=== PATIENT | female | born 1960 | race Caucasian/White ===

== ENCOUNTER → 2016-10-04 | Outpatient (CLI) | payer MEDICAID ==
[2016-10-04 09:33] LABS: Basophils % (A) 0 %; CH 28.4; Eosinophils # (A) 0.2 k/uL (0-0.7); Eosinophils % (A) 3 %; HCT 44.2 % (34.0-46.0); HDW 2.79; HGB 14.3 gm/dL (11.4-16.0); Luc # (Auto) 0.17; Luc % (Auto) 3; Lymphocytes # (A) 2.1 k/uL (1.0-4.8); Lymphocytes % (A) 30 %; MCH 27.9 pg (25.0-35.0); MCHC 32.3 g/dL (31.0-37.0); MCV 86.4 fL (80.0-100.0); Mean Platelet Volume 7.3; Monocytes # (A) 0.5 k/uL (0-1.0); Monocytes % (A) 7 %; Neutrophils % (A) 58 %; RBC 5.12 m/uL (3.80-5.40); WBC (Perox) 7.07
== END | disposition home or self-care (01) ==
LOC: LABPAT 08:31
PROVIDERS: ATTEND Obstetrics & Gynecology
DX: Z01.810 Encounter for preprocedural cardiovascular examination (principal); Z01.812 Encounter for preprocedural laboratory examination
CPT/HCPCS: 85025; 93005

== ENCOUNTER 2016-10-10 06:47 | Day surgery (SDC) | payer MEDICAID ==
[2016-10-04 11:02] VITALS: BMI 32.9
--- NOTE | 2016-10-09 20:33 | P.HPOB ---
History of Present Illness H&P Date: 10/09/16 Chief Complaint: Postmenopausal bleeding This is a 55-year-old female 6 para 3 who presents for dilation and curettage with hysteroscopy secondary to postmenopausal bleeding. She started having some brown and bright red spotting in early August. She has been continuing to have this intermittently. Her last menstrual period was previously at age 49. Pelvic ultrasound showed uterus measuring 7.7 x 4.0 x 5.7 cm and endometrial stripe measured 0.7 cm. Both ovaries appeared normal. Obstetrical history: . History of 1 vaginal delivery and 2 sections. She also has a history of 3 miscarriages. Gynecologic history: She does have a history of herpes virus but no recent outbreaks. Social history: She is . 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 Review of Systems Constitutional: Reports fatigue Gastrointestinal: Reports abdominal pain (Cramping) Genitourinary: Reports abnormal vaginal bleeding, Reports pelvic pain Musculoskeletal: Reports low back pain Musculoskeletal: bilateral: ankle swelling Neurological: Reports numbness (Hands, arms, both legs, more so on the right side.) Psychiatric: Reports anxiety, Reports difficulty concentrating, Reports insomnia Past Medical History Past Medical History: Asthma, Cancer, Diabetes Mellitus (Borderline), GERD/ Reflux, Osteoarthritis (OA) Additional Past Medical History / Comment(s): CANCER BEHIND RT KNEE; history of simple endometrial hyperplasia diagnosed in 2010. History of Any Multi-Drug Resistant Organisms: None Reported Past Surgical History: Breast Surgery, Section, Joint Replacement, Orthopedic Surgery Additional Past Surgical History / Comment(s): RIGHT KNEE REPLACED. BILATERAL KNEE ARTHO. BREAST BX-NEG. OVARIAN CYST REMOVED-exploratory laparotomy, TUMOR RIGHT KNEE- CANCEROUS. Dilation and curettage with hysteroscopy-2010. COLONOSCOPY Past Anesthesia/Blood Transfusion Reactions: No Reported Reaction Past Psychological History: ADD/ADHD, Depression Smoking Status: Former smoker Past Alcohol Use History: Rare Additional Past Alcohol Use History / Comment(s): SMOKED: QUIT @ 25 YR. SMOKED FOR 3 YRS. PPD: 1.5. Past Drug Use History: None Reported - Past Family History Mother Family Medical History: AFIB Father Family Medical History: Cancer Medications and Allergies Home Medications Medication Instructions Recorded Confirmed Type Citalopram Hydrobromide [CeleXA] 20 mg PO HS 12/07/14 10/04/16 History Dextroamphetamine/Amphetamine 30 mg PO Q72H 12/07/14 10/04/16 History [Adderall] Montelukast [Singulair] 10 mg PO DAILY PRN 12/07/14 10/04/16 History Zolpidem [Ambien] 5 mg PO HS PRN 12/07/14 10/04/16 History Albuterol Sulfate [Ventolin HFA] 2 puff INHALATION RT-Q6H PRN 12/09/14 10/04/16 History Cholecalciferol [Vitamin D3] 1,000 unit PO MOFR 12/09/14 10/04/16 History Multivitamins, Thera [Multivitamin] 1 tab PO DAILY 12/09/14 10/04/16 History [place]-3 Fatty Acids/Fish Oil [Fish 1 cap PO DAILY 12/09/14 10/04/16 History Oil 1,000 mg Softgel] Omeprazole [PriLOSEC] 20 mg PO DAILY 03/28/16 10/04/16 History HYDROcodone/APAP 7.5-325MG [[place] 1 tab PO Q6HR PRN 10/04/16 10/04/16 History 7.5-325] Ibuprofen [Motrin] 600 mg PO DAILY PRN 10/04/16 10/04/16 History Allergies Allergy/AdvReac Type Severity Reaction Status Date / Time scopolamine Allergy tachycardia Verified 10/04/16 10:45 Exam Osteopathic Statement: *. No significant issues noted on an osteopathic structural exam other than those noted in the History and Physical/Consult. HEENT: Within normal limits Heart: Regular rate and rhythm Lungs: Clear to auscultation bilaterally Abdomen: Soft, nontender Pelvic exam: Cervix-Multiparous os with bloody discharge noted. Uterus is mid position and slightly enlarged, with no adnexal masses palpated. Extremities: Negative Homans Assessment and Plan (1) Post-menopausal bleeding Status: Acute Plan: Proceed with dilation and curettage with hysteroscopy. I have discussed the risks, benefits, and alternative therapies for the above- mentioned procedure and for both sedation/anesthesia as well as necessary blood products administration, if indicated, as they pertain to this patient. The patient has indicated her understanding and acceptance of the risks and procedures discussed.
[~2016-10-10 06:47] MED LIST: DEXAMETHASONE SOD PHOSPHATE 10 MG/ML 1 ML VIAL IV ONE; LACTATED RINGERS 1,000 ML IV SCH; MIDAZOLAM 2 MG/2 ML VIAL IV PRN; ONDANSETRON 4 MG/2 ML VIAL IVP ONE; Pre Op ABX Message 1 EACH MISC MISCELLANE ONE
[2016-10-10] MEDS ORDERED: LACTATED RINGERS 1,000 ML IV ONE (07:24)
[2016-10-10] MEDS ORDERED: LIDOCAINE 1% 20 ML VIAL (10MG/ML) FOR IV START INTRADERMA ONE (07:25)
[2016-10-10] MEDS ORDERED: MIDAZOLAM 2 MG/2 ML VIAL ONE (07:30)
[2016-10-10] MEDS ORDERED: SUCCINYLCHOLINE CHLORIDE VIAL 200 MG/10 ML VIAL IV ONE (07:30)
[2016-10-10] MEDS ORDERED: LIDOCAINE 1% INJ 10MG/ML (20 ML MDV) ONE (07:30)
[2016-10-10] MEDS ORDERED: fentaNYL (PF) 50 MCG/ML 2 ML AMP ONE (07:30)
[2016-10-10] MEDS ORDERED: PROPOFOL 10 MG/ML 20 ML VIAL IV ONE (07:30)
--- NOTE | 2016-10-10 08:00 | P.OP ---
Date of Procedure: 10/10/16 Preoperative Diagnosis: Postmenopausal bleeding, endometrial thickening Postoperative Diagnosis: Same Procedure(s) Performed: Hysteroscopy with dilation and curettage Anesthesia: CHARLES Surgeon: Fidelia Briceno Estimated Blood Loss (ml): 5 Pathology: other (Endometrial curettings) Condition: stable Disposition: same day Indications for Procedure: This is a 55-year-old female 6 para 3 who presents for dilation and curettage with hysteroscopy secondary to postmenopausal bleeding. She started having some brown and bright red spotting in early August. She has been continuing to have this intermittently. Her last menstrual period was previously at age 49. Pelvic ultrasound showed uterus measuring 7.7 x 4.0 x 5.7 cm and endometrial stripe measured 0.7 cm. Both ovaries appeared normal. Operative Findings: Uterus is anteverted, sounded to 7 cm. No adnexal masses are palpated. Upon hysteroscopy a slightly thicker posterior lining was noted. No specific polyps or fibroids were visualized. Both tubal ostia were visualized. Description of Procedure: The patient was taken to the operating room where she is placed in the dorsal lithotomy position. She is prepped and draped in the normal sterile fashion. Bladder is drained with a catheter. Examination is performed under anesthesia. Uterus is found to be mid to anteverted position. No adnexal masses are palpated. Next a weighted speculum was placed in the patient's vagina and a right angle retractor was used to visualize the cervix. The anterior lip of the cervix is grasped with a single-tooth tenaculum. The cervix is noted to be stenotic. It is open slightly with a small Mckeon dilator. Next the uterus is sounded to 7 cm. Cervix is gently dilated further with Mckeon dilators until a hysteroscope passed. Hysteroscopy was performed using normal saline. The above noted findings are made and pictures are taken. Next the hysteroscope was withdrawn and the cervix is gently dilated further. A polyp forcep was introduced with minimal tissue obtained. Next a medium-size sharp curet was introduced with minimal to moderate amount of tissue obtained. Next the single- tooth tenaculum was removed no bleeding was noted. The specimen was removed from the field. All sponge and needle counts are correct. All instruments are correct and the patient is taken to recovery room in stable condition.
[2016-10-10 08:14] VITALS: TEMP 97.2
[2016-10-10] MEDS ORDERED: KETOROLAC 30 MG/ML 1 ML VIAL IVP ONE (08:23)
[2016-10-10] MEDS: HYDROmorphone 1 MG/ML 1 ML SYRINGE IVP PRN ×2 (08:36→08:41)
[2016-10-10 09:58] VITALS: RESP 18
[2016-10-10 11:06] VITALS: BP 126/78; PULSE 73
== END 2016-10-10 11:07 | disposition home or self-care (01) ==
LOC: OR 06:47
PROVIDERS: ATTEND Obstetrics & Gynecology
DX: N85.01 Benign endometrial hyperplasia (principal); N95.0 Postmenopausal bleeding; J45.909 Unspecified asthma, uncomplicated; K21.9 Gastro-esophageal reflux disease without esophagitis; F32.9 Major depressive disorder, single episode, unspecified; F90.9 Attention-deficit hyperactivity disorder, unspecified type; M19.90 Unspecified osteoarthritis, unspecified site; Z88.8 Allergy status to other drugs, medicaments and biological substances; Z79.1 Long term (current) use of non-steroidal anti-inflammatories (NSAID); Z79.899 Other long term (current) drug therapy; Z87.891 Personal history of nicotine dependence; Z85.9 Personal history of malignant neoplasm, unspecified
CPT/HCPCS: 58558; 88305; J2250; J0330; J1100; J2405; J2001; J3010; J1885; J1170; J2704

== ENCOUNTER → 2017-01-26 | Outpatient (CLI) | payer MEDICAID ==
[2017-01-26 18:54] LABS: Basophils % (A) 1 %; CHCM 32.1; Eosinophils # (A) 0.2 k/uL (0-0.7); Eosinophils % (A) 2 %; HCT 41.3 % (34.0-46.0); HDW 2.83; HGB 13.4 gm/dL (11.4-16.0); Luc # (Auto) 0.09; Luc % (Auto) 1; Lymphocytes # (A) 1.8 k/uL (1.0-4.8); Lymphocytes % (A) 23 %; MCH 28.5 pg (25.0-35.0); MCHC 32.5 g/dL (31.0-37.0); MCV 87.7 fL (80.0-100.0); Mean Platelet Volume 8.4; Monocytes # (A) 0.5 k/uL (0-1.0); Monocytes % (A) 7 %; Neutrophils # (A) 5.3 k/uL (1.3-7.7); Neutrophils % (A) 67 %; RBC 4.71 m/uL (3.80-5.40); RDW 13.4 % (11.5-15.5); WBC 7.9 k/uL (3.8-10.6); WBC (Perox) 7.97
[2017-01-26 19:07] LABS: ALT 27 U/L (9-52); AST 23 U/L (14-36); Alkaline Phosphatase 52 U/L (38-126); Anion Gap 7 mmol/L; Blood Urea Nitrogen 18 mg/dL (7-17); Calcium 9.4 mg/dL (8.4-10.2); Carbon Dioxide 30 mmol/L (22-30); Chloride 105 mmol/L (98-107); Glucose 87 mg/dL (74-99); Non-African American GFR(MDRD) >60 (>60 ml/min/1.73 sqM); Potassium 4.9 mmol/L (3.5-5.1); Sodium 142 mmol/L (137-145); Total Bilirubin 0.6 mg/dL (0.2-1.3)
[2017-01-26 19:50] LABS: Vitamin B12 582 pg/mL (239-931)
== END ==
LOC: MMGSC 13:36
PROVIDERS: ATTEND Family Medicine
DX: R53.83 Other fatigue (principal); R20.2 Paresthesia of skin
CPT/HCPCS: 36415; 80053; 82306; 82607; 84439; 84443; 85025

== ENCOUNTER → 2017-04-11 | Outpatient (CLI) | payer MEDICAID ==
--- NOTE | 2017-04-13 07:33 | MM ---
Reason for exam: screening (asymptomatic). Last mammogram was performed 1 year and 7 months ago. History: Patient is postmenopausal and has history of other cancer at age 23. Family history of breast cancer in grandmother at age 90. Excisional biopsy of the left breast, 1979. Took estrogen for 1 month. Physical Findings: A clinical breast exam by your physician is recommended on an annual basis and results should be correlated with mammographic findings. MG 3D Screening Mammo W/Cad Bilateral CC and MLO view(s) were taken. Prior study comparison: September 04, 2015, bilateral MG 3d screening mammo w/cad. January 22, 2014, bilateral digital screening mammo w/CAD. February 27, 2012, bilateral digital screening mammo w/CAD. The breast tissue is heterogeneously dense. This may lower the sensitivity of mammography. No significant changes when compared with prior studies. ASSESSMENT: Negative, BI-RAD 1 RECOMMENDATION: Routine screening mammogram of both breasts in 1 year.
== END | disposition home or self-care (01) ==
LOC: RADMAMWWP 07:47
PROVIDERS: ATTEND Obstetrics & Gynecology
DX: Z12.31 Encounter for screening mammogram for malignant neoplasm of breast (principal)
CPT/HCPCS: 77063; G0202

== ENCOUNTER → 2017-07-18 | Outpatient (CLI) | payer MEDICAID ==
--- NOTE | 2017-07-18 15:19 | US ---
EXAMINATION TYPE: US pelvic complete DATE OF EXAM: 07/18/2017 COMPARISON: US CLINICAL HISTORY: Pelvic pain R10.2 Post menopausal bleeding N95.0. TECHNIQUE: Transabdominal (TA) Date of LMP: Patient had instance of spotting, 4 years post menopausal. EXAM MEASUREMENTS: Uterus: 8.7 x 3.5 x 5.2 cm Endometrial Stripe: 0.9 cm Right Ovary: 2.0 x 1.2 x 1.2 cm Left Ovary: 1.9 x 1.1 x 1.0 cm 1. Uterus: Anteverted wnl 2. Endometrium: Thickened 3. Right Ovary: wnl 4. Left Ovary: wnl 5. Bilateral Adnexa: wnl 6. Posterior cul-de-sac: wnl IMPRESSION: Thickened endometrium. In a postmenopausal patient this may represent endometrial carcino ma and direct visualization with sampling is recommended.
== END ==
LOC: RADUSWWP 13:55
PROVIDERS: ATTEND Obstetrics & Gynecology
DX: R93.8 Abnormal findings on diagnostic imaging of other specified body structures (principal)
CPT/HCPCS: 76856

== ENCOUNTER → 2017-09-14 | Outpatient (CLI) | payer MEDICAID ==
[2017-09-14 11:42] LABS: CH 28.5; CHCM 33.8; HCT 43.5 % (34.0-46.0); HDW 2.95; HGB 14.5 gm/dL (11.4-16.0); MCH 28.2 pg (25.0-35.0); MCHC 33.4 g/dL (31.0-37.0); MCV 84.5 fL (80.0-100.0); Mean Platelet Volume 7.2; RBC 5.15 m/uL (3.80-5.40); RDW 13.1 % (11.5-15.5); WBC 7.4 k/uL (3.8-10.6)
== END | disposition home or self-care (01) ==
LOC: LABPAT 11:09
PROVIDERS: ATTEND Obstetrics & Gynecology
DX: Z01.818 Encounter for other preprocedural examination (principal); Z01.812 Encounter for preprocedural laboratory examination
CPT/HCPCS: 36415; 85027; 93005

== ENCOUNTER 2017-09-25 09:49 | Day surgery (SDC) | payer MEDICAID ==
[2017-09-20 12:11] VITALS: BMI 34.6
--- NOTE | 2017-09-24 14:58 | P.HPOB ---
History of Present Illness H&P Date: 09/24/17 Chief Complaint: Endometrial thickening, history of endometrial hyperplasia This is a 56-year-old female 6 para 3, who presents for dilation and curettage with hysteroscopy secondary to an Vicente thickening and history of endometrial hyperplasia without atypia. Endometrial thickness was 9 mm. She was placed on Prometrium for 3 months after her last dilation and curettage. She did have a repeat endometrial biopsy in January 2017 that showed fragments of inactive/weakly proliferative type endometrium but limited sample was noted. Her last pelvic ultrasound showed uterus measuring 8.7 x 3.5 x 5.2 cm. Endometrial stripe thickness was 9 mm. Both ovaries appeared normal. Her last menstrual period was at age 49. Obstetrical history: . History of 1 vaginal delivery and 2 deliveries. History of 3 miscarriages. Gynecologic history: She has a history of herpes. Social history: She is and has a current partner. 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 Review of Systems Constitutional: Reports fatigue, Denies chills, Denies fever Ears, nose, mouth and throat: Denies headache, Denies sore throat Cardiovascular: Denies chest pain, Denies shortness of breath Respiratory: Denies cough Gastrointestinal: Reports abdominal pain Genitourinary: Reports pelvic pain, Denies abnormal vaginal bleeding Menstruation: Reports postmenopausal Musculoskeletal: Reports low back pain, Reports myalgias Integumentary: Denies pruritus, Denies rash Neurological: Reports numbness Psychiatric: Reports anxiety, Reports difficulty concentrating, Reports insomnia Hematologic/Lymphatic: Reports easy bruising Past Medical History Past Medical History: Asthma, Cancer, GERD/Reflux, Osteoarthritis (OA) Additional Past Medical History / Comment(s): Postmenopausal bleeding,bordrline htn,varicose veins,hypoglycemia,Cancerous tumor BEHIND RT KNEE-no chemo/ radiation; history of simple endometrial hyperplasia diagnosed in 2010. History of Any Multi-Drug Resistant Organisms: None Reported Past Surgical History: Breast Surgery, Section, Joint Replacement, Orthopedic Surgery Additional Past Surgical History / Comment(s): RIGHT KNEE REPLACED. BILATERAL KNEE ARTHO. BREAST BX-NEG. OVARIAN CYST REMOVED NOT LAPAROSCOPIC. TUMOR RIGHT KNEE- CANCEROUS,tumor removed left breast; dilation and curettage-multiple Past Anesthesia/Blood Transfusion Reactions: No Reported Reaction Additional Past Anesthesia/Blood Transfusion Reaction / Comment(s): no hx blood transfusion Past Psychological History: Anxiety Smoking Status: Former smoker Past Alcohol Use History: Occasional Past Drug Use History: None Reported - Past Family History Mother Family Medical History: AFIB Father Family Medical History: Cancer Medications and Allergies Home Medications Medication Instructions Recorded Confirmed Type Citalopram Hydrobromide [CeleXA] 20 mg PO HS 12/07/14 09/20/17 History Dextroamphetamine/Amphetamine 30 mg PO Q72H 12/07/14 09/20/17 History [Adderall] Montelukast [Singulair] 10 mg PO DAILY PRN 12/07/14 09/20/17 History Zolpidem [Ambien] 5 mg PO HS PRN 12/07/14 09/20/17 History Albuterol Sulfate [Ventolin HFA] 2 puff INHALATION RT-Q6H PRN 12/09/14 09/20/17 History Cholecalciferol [Vitamin D3] 1,000 unit PO DAILY 12/09/14 09/20/17 History Multivitamins, Thera [Multivitamin 1 tab PO Q7D 12/09/14 09/20/17 History (formulary)] [place]-3 Fatty Acids/Fish Oil [Fish 1 cap PO DAILY 12/09/14 09/20/17 History Oil 1,000 mg Softgel] Omeprazole [PriLOSEC] 20 mg PO DAILY PRN 03/28/16 09/20/17 History HYDROcodone/APAP 7.5-325MG [[place] 1 tab PO Q6HR PRN 10/04/16 09/20/17 History 7.5-325] Ibuprofen [Motrin] 600 mg PO DAILY PRN 10/04/16 09/20/17 History Aspirin 81 mg PO DAILY 09/20/17 09/20/17 History Gabapentin [Neurontin] 300 mg PO DAILY 09/20/17 09/20/17 History Allergies Allergy/AdvReac Type Severity Reaction Status Date / Time scopolamine Allergy tachycardia Verified 09/20/17 12:01 Exam Osteopathic Statement: *. No significant issues noted on an osteopathic structural exam other than those noted in the History and Physical/Consult. HEENT: Within normal limits Heart: Regular rate and rhythm Lungs: Clear to auscultation bilaterally Abdomen: Soft, nontender Pelvic exam: Uterus is slightly enlarged, mildly tender, with no adnexal masses palpated but tenderness noted bilaterally. Extremities: Negative Homans Assessment and Plan (1) Endometrial thickening on ultra sound Status: Acute Code(s): R93.8 - ABNORMAL FINDINGS ON DIAGNOSTIC IMAGING OF BODY STRUCTURES SNOMED Code(s): 785145132 (2) Endometrial hyperplasia without atypia, simple Status: Acute Code(s): N85.01 - BENIGN ENDOMETRIAL HYPERPLASIA SNOMED Code(s ): 417318428 Plan: Proceed with dilation and curettage with hysteroscopy. I have discussed the risks, benefits, and alternative therapies for the above- mentioned procedure and for both sedation/anesthesia as well as necessary blood products administration, if indicated, as they pertain to this patient. The patient has indicated her understanding and acceptance of the risks and procedures discussed.
[2017-09-25] MEDS ORDERED: LIDOCAINE 1% 20 ML VIAL (10MG/ML) FOR IV START INTRADERMA ONE (10:07)
[2017-09-25 10:10] LABS: Glucose,Whole Blood 96 mg/dL (75-99)
[2017-09-25] MEDS ORDERED: PROPOFOL 10 MG/ML 20 ML VIAL IV ONE (11:16)
[2017-09-25] MEDS ORDERED: LIDOCAINE 1% INJ 10MG/ML (20 ML MDV) ONE (11:16)
[2017-09-25] MEDS ORDERED: KETOROLAC 30 MG/ML 1 ML VIAL ONE (11:16)
[2017-09-25] MEDS ORDERED: SUCCINYLCHOLINE CHLORIDE 100 MG/5 ML SYR IV ONE (11:16)
[2017-09-25] MEDS ORDERED: MIDAZOLAM 2 MG/2 ML VIAL ONE (11:16)
[2017-09-25] MEDS ORDERED: fentaNYL (PF) 50 MCG/ML 2 ML AMP ONE (11:16)
--- NOTE | 2017-09-25 11:36 | P.OP ---
Date of Procedure: 09/25/17 Preoperative Diagnosis: Endometrial thickening, history of endometrial hyperplasia Postoperative Diagnosis: Same Procedure(s) Performed: Dilation and curettage with hysteroscopy Anesthesia: CHARLES Surgeon: Fidelia Briceno Estimated Blood Loss (ml): 5 Pathology: other (Endometrial curettings) Condition: stable Disposition: same day Indications for Procedure: This is a 56-year-old female 6 para 3, who presents for dilation and curettage with hysteroscopy secondary to an Vicente thickening and history of endometrial hyperplasia without atypia. Endometrial thickness was 9 mm. She was placed on Prometrium for 3 months after her last dilation and curettage. She did have a repeat endometrial biopsy in January 2017 that showed fragments of inactive/weakly proliferative type endometrium but limited sample was noted. Her last pelvic ultrasound showed uterus measuring 8.7 x 3.5 x 5.2 cm. Endometrial stripe thickness was 9 mm. Both ovaries appeared normal. Her last menstrual period was at age 49. Operative Findings: Uterus is mid position, sounded to 7 cm. Upon hysteroscopy, both tubal ostia are visualized. There is what appears to be a small anterior polyp. There was a slightly irregular contour on the posterior border consistent with possible submucosal fibroids. A minimal amount of endometrial tissue is obtained. Description of Procedure: The patient is taken to the operating room where she is placed in the dorsal lithotomy position. She is prepped and draped in the normal sterile fashion. Bladder is drained with a catheter and then removed. Examination is performed under anesthesia. Uterus is sounded mid position with no adnexal masses palpated. Next a weighted speculum was placed in the patient's vagina and a right angle retractor was used to visualize the anterior lip of the cervix. The anterior lip of the cervix is grasped with a single-tooth tenaculum. Next the uterus is sounded to 7 cm. Cervix is gently dilated with Mckeon dilators until a hysteroscope could be passed. Hysteroscopy is performed using normal saline. The above noted findings are made and pictures are taken. Next the hysteroscope was withdrawn and the cervix is gently dilated further. A polyp forcep was introduced and minimal polypoid type tissue was obtained. Next a medium-size sharp curet was introduced and sharp curettage was performed until a gritty texture was noted. A minimal further amount of tissue was obtained. Next the specimen was removed from the field. The single-tooth tenaculum is removed and no bleeding was noted. All instruments are removed from the vagina. All sponge and needle counts are correct. The patient is then taken to recovery room in stable condition.
[2017-09-25 11:51] VITALS: TEMP 97.1
[2017-09-25] MEDS: HYDROmorphone 0.5 MG/0.5 ML SYRINGE IVP PRN ×2 (12:03→12:10)
[2017-09-25 12:43] VITALS: RESP 16
[2017-09-25 13:13] VITALS: BP 143/77; PULSE 82
== END 2017-09-25 13:51 | disposition home or self-care (01) ==
LOC: OR 09:49
PROVIDERS: ATTEND Obstetrics & Gynecology
DX: N85.00 Endometrial hyperplasia, unspecified (principal); R93.8 Abnormal findings on diagnostic imaging of other specified body structures; J45.909 Unspecified asthma, uncomplicated; K21.9 Gastro-esophageal reflux disease without esophagitis; Z85.831 Personal history of malignant neoplasm of soft tissue; Z87.891 Personal history of nicotine dependence; M19.90 Unspecified osteoarthritis, unspecified site; R03.0 Elevated blood-pressure reading, without diagnosis of hypertension; E16.2 Hypoglycemia, unspecified; Z79.82 Long term (current) use of aspirin; Z79.899 Other long term (current) drug therapy; Z88.8 Allergy status to other drugs, medicaments and biological substances
CPT/HCPCS: 58558; 88305; 87070; J2250; J1100; J2405; J2001; J3010; J1885; J0330; J2704; J1170

== ENCOUNTER 2017-10-09 05:56 | Inpatient (IN) | payer MEDICAID ==
[2017-09-27 13:15] VITALS: BMI 34.1
--- NOTE | 2017-10-08 13:34 | HP ---
HISTORY AND PHYSICAL CHIEF COMPLAINT: Left knee pain. 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 It has worsened recently. She has pain that limits her normal walking and function. She has tried medications along with injections with only partial temporary relief. She is having significant night symptoms. PAST MEDICAL HISTORY: Significant for arthritis, hypertension, reflux disease, asthma. CURRENT MEDICATIONS: Advair, albuterol, Celexa, Singulair, [place], omeprazole, Adderall, Motrin. ALLERGIES: Denies drug allergies. SURGICAL HISTORY: Significant for previous right total knee arthroplasty along with bilateral knee arthroscopies. FAMILY HISTORY: Significant for cancer. SOCIAL HISTORY: Significant for previous tobacco use, however she quit in 1986. REVIEW OF SYSTEMS: Sixteen point review of systems otherwise reviewed and is noncontributory. PHYSICAL EXAMINATION: On examination, the patient is approximately 5 foot 5, 205 pounds of endomorphic habitus. HEENT for HEENT exam is nonfocal. Neck is supple she has painless passive motion of her left hip. Straight leg raise is negative. Active motion left knee -10 to 105 degrees of flexion. She has a moderate effusion. Collaterals are stable, Salvatore's negative, Stuart's is equivocal. She has genu varum alignment. Her distal neurovascular appears intact in the left lower extremity. Weightbearing notch lateral and Merchant views of the left knee obtained in the office show severe medial and patellofemoral compartment narrowing. IMPRESSION: 1. Left knee severe medial and patellofemoral compartment osteoarthrosis. 2. Increased body mass index. RECOMMENDATIONS: I talked to the patient at length regarding her condition and treatment options. After thorough discussion, she opts to proceed with surgery. We will plan to proceed with left total knee arthroplasty. Risks and benefits were discussed at length in layman's terms. The patient underwent preoperative medical evaluation by Dr. Piper. MMODL / IJN: [id number] /
[~2017-10-09 05:56] MED LIST changes: +ACETAMINOPHEN TAB 500 MG TAB PO ONE; -LACTATED RINGERS 1,000 ML IV SCH; +LIDOCAINE 1% 20 ML VIAL (10MG/ML) FOR IV START INTRADERMA PRN; +MELOXICAM 7.5 MG TAB PO ONE; -Pre Op ABX Message 1 EACH MISC MISCELLANE ONE; +TRANEXAMIC ACID 1,000 MG in SODIUM CHLORIDE 0.9% 50 ML IVPB ONE; +ceFAZolin IN SWFI 2 GM/20 ML SYRINGE IVP ONE
[2017-10-09] MEDS: LACTATED RINGERS 1,000 ML IV SCH (06:42)
[2017-10-09 06:50] LABS: Glucose,Whole Blood 116 mg/dL (75-99)
[2017-10-09] MEDS ORDERED: TRANEXAMIC ACID 1,000 MG/10 ML VIAL ONE (08:06)
[2017-10-09] MEDS ORDERED: SODIUM CHLORIDE 0.9% 100 ML BAG ONE (08:06)
[2017-10-09] MEDS ORDERED: LIDOCAINE 1% INJ 10MG/ML (20 ML MDV) ONE (08:06)
[2017-10-09] MEDS ORDERED: MIDAZOLAM 2 MG/2 ML VIAL ONE (08:06)
[2017-10-09] MEDS ORDERED: PROPOFOL 10 MG/ML 20 ML VIAL IV ONE (08:06)
[2017-10-09] MEDS ORDERED: fentaNYL (PF) 50 MCG/ML 2 ML AMP ONE (08:06)
[2017-10-09] MEDS ORDERED: ROPIVACAINE 246.25 MG, EPINEPHrine 0.5 MG, KETOROLAC 30 MG, cloNIDine HCL/PF 80 MCG, WA... MISCELLANE ONE ×5 (08:10)
[2017-10-09] MEDS ORDERED: ROPIVACAINE 1,100 MG, SODIUM CHLORIDE 0.9% 330 ML MISCELLANE PRN ×2 (08:50)
--- NOTE | 2017-10-09 08:51 | P.ONQ ---
Anesthesiology Proc Note - PNB - Peripheral Nerve Block Performed Left Adductor Canal Indication: Acute Post-Operative Pain, Requested by physician (Kirk) Sedation Type: Sedate with meaningful contact maintained Preparation: Sterile Dressing Position: Supine Catheter: Indwelling Needle Types: Other (see comment) (Geronimo) Needle Size: 100mm (4") Needle Gauge: 20 Technique: Ultrasound Injectate: 0.5% Ropivacaine (see comment for volume) (20cc) Blood Aspirated: No Pain Paresthesia on Injection Noted: No Resistance on Injection: Normal Events: Uneventful and Well Tolerated
[2017-10-09] MEDS ORDERED: ceFAZolin 3,000 MG in SODIUM CHLORIDE 0.9% IRRIGATIO 3,000 ML IRRIGATION ONE (08:54)
[2017-10-09] MEDS ORDERED: LACTATED RINGERS 1,000 ML IV ONE (09:42)
[2017-10-09] MEDS ORDERED: MAGNESIUM HYDROXIDE 2,400 MG/10 ML CUP PO PRN (10:17)
[2017-10-09] MEDS ORDERED: HYDROmorphone 2 MG/ML 1 ML SYRINGE IVP PRN ×2 (10:17)
[2017-10-09] MEDS ORDERED: NALOXONE 0.4 MG/ML 1 ML VIAL IV PRN (10:17)
[2017-10-09] MEDS ORDERED: HYDROcodone/APAP 7.5-325MG 1 EACH TAB PO PRN (10:17)
[2017-10-09] MEDS ORDERED: ONDANSETRON 4 MG/2 ML VIAL IVP PRN (10:17)
--- NOTE | 2017-10-09 10:48 | P.OP ---
Date of Procedure: 10/09/17 Preoperative Diagnosis: Severe left knee tricompartmental osteoarthrosis Postoperative Diagnosis: Same Procedure(s) Performed: Left total knee qiszuxfhhipz-iehyozba-rzmvavkvg stabilized Implants: [employer] size 4 cemented femoral component, size 3 cemented tibial component, 9 mm articular surface, 29 mm cemented patellar component. This is a posterior stabilized implant. Anesthesia: regional, local, spinal Surgeon: Earnest Bradley Engineer Systems #1: Сергей Cassidy Estimated Blood Loss (ml): 50 Pathology: other (Bone fragments) Condition: stable Disposition: PACU Indications for Procedure: The patient is a 56-year-old female who presents with progressive left knee pain secondary to osteoarthrosis despite extensive conservative treatment. A discussion of the risks and benefits of operative intervention versus continued conservative measures was made with patient. She opted to proceed with surgery. Operative risks to include infection, neurovascular injury, development of blood clots, possible component loosening, possible component failure and need for subsequent procedures was discussed. Informed consent was obtained. Operative Findings: Severe tricompartmental osteoarthrosis Description of Procedure: The patient is brought to the operating room and after induction of spinal anesthesia the left lower extremity was prepped and draped in normal fashion. The tourniquet was inflated to 270 mmHg. A longitudinal incision extending 3 finger breaths above the superior pole of the patella extending to the medial aspect of the tibial tubercle was then made. The skin and subcutaneous tissues were divided sharply. Electrocautery was used for hemostasis. A medial parapatellar arthrotomy was performed. The medial soft tissues to include the superficial and deep portions of the medial collateral ligament as well as the medial hamstring tendons were elevated subperiosteally. The proximal medial tibial osteophytes were carefully removed. The patella was everted. A portion of the retropatellar fat pad was excised sharply. The knee was flexed. The anterior cruciate ligament was sacrificed. A starting hole was made in the distal femur 1 cm anterior to the posterior cruciate ligament origin. An intramedullary guide was then gently inserted planning on 5 valgus distal cut with 9 mm distal resection. The cutting block was pinned in place. The distal cut was then made. The posterior referencing sizing guide was utilized. I felt size 4 was most appropriate. 3 of external rotation was built into the system and verified off the trans-epicondylar axis and the posterior condyles. The cutting block was pinned in place. The anterior, posterior, and chamfer cuts were then made. The bone fragments were then removed. The box was then prepared utilizing the appropriate guide. The bone was removed as well as a portion of the PCL. The trial size 4 posterior stabilized femoral component was then fully inserted and impacted. There was good anterior to posterior and medial to lateral fit. The trial component was then removed. Attention was then paid towards preparing the proximal tibia. An extra medullary guide was utilized in line with the tibial shaft and second metatarsal distally. A 3 posterior slope cutting block was utilized. I planned on 2 mm resection from the medial compartment. The cutting block was pinned in place. The proximal tibial cut was made in the bone removed in one fragment. I felt this was inadequate therefore an additional 2 mm was resected. The tibia sized most appropriate size 3. The remnants of the medial and lateral menisci were excised at the capsular junction with electrocautery. The trial femoral and tibial components were placed along with a 9 mm articular surface. I was able to obtain full flexion and extension with good stability with varus and valgus stress. The tibial rotation was marked with electrocautery in line with the medial one third of the tibial tubercle. Attention was then paid towards preparing the patella. A patella reamer was utilized taking this down to 14 mm of bone stock. A good flush cut was made. The patella sized most appropriately 29 mm. The peg holes were drilled. The trial components placed. The knee was taken through range of motion. I had good patellofemoral tracking with no hands technique. The trial components were then removed. The tibia was prepared in the appropriate rotation with appropriate drill and keel punch. The posterior osteophytes off the distal femur were carefully removed with a curved osteotome. The flexion and extension gaps were checked and felt to be symmetric. The posterior soft tissues were injected with ropivacaine. Bony surfaces were prepared with pulsatile lavage and dried. The tibial component was then cemented in placed and was fully seated. Excess cement was removed. The femoral component was cemented in place and fully seated. Again excess cement was removed. The trial 9 mm articular surface was placed in the knee was put in full extension. The patella component was cemented in placed and was fully seated. After the cement had sufficiently hardened, the knee was again taken through range of motion. Again I was able to obtain full flexion and extension with good stability with varus and valgus stress. The trial 9 mm articular surface was removed and the final one inserted. This was fully seated. Care was taken to avoid any soft tissue interposition. Pulsatile lavage was again utilized. The medial parapatellar arthrotomy was closed with # 2 Ethibond suture. The tourniquet was deflated with approximately 75 minutes total tourniquet time. Final hemostasis obtained the second dose of IV TXA given. The subcutaneous tissues were reapproximated with interrupted 2-0 Vicryl suture. The skin was reprepped with 3-0 subcuticular strata fix suture. Skin tape and adhesive was applied. A sterile dressing was applied. The patient was awoken from sedation and transferred to recovery room in good condition. Blood loss was estimated at 50 mL. No complications were incurred. Sponge and needle counts were correct at the end of the case.
--- NOTE | 2017-10-09 10:56 | XR ---
EXAMINATION TYPE: XR knee limited LT DATE OF EXAM: 10/09/2017 COMPARISON: NONE TECHNIQUE: Two views submitted HISTORY: Post op FINDINGS: There is a prosthetic knee in near anatomic alignment. There is soft tissue edema and emphysema. Mariee rgical drain noted. IMPRESSION: 1. Postoperative change. Appears in near-anatomic alignment
[2017-10-09] MEDS: HYDROmorphone 0.5 MG/0.5 ML SYRINGE IVP PRN ×4 (11:26→12:08)
[2017-10-09] MEDS: HYDROcodone/APAP 7.5-325MG 1 EACH TAB PO PRN ×2 (15:00→23:34)
[2017-10-09 16:02] VITALS: RESP 16
[2017-10-09] MEDS: traMADol 50 MG TAB PO SCH ×3 (16:26→20:54)
[2017-10-09] MEDS ORDERED: PANTOPRAZOLE 40 MG TABLET PO PRN (17:31)
[2017-10-09] MEDS ORDERED: ZOLPIDEM 5 MG TAB PO PRN (17:31)
[2017-10-09] MEDS ORDERED: ALBUTEROL NEBULIZED 2.5 MG/3 ML INHALATION PRN (17:32)
--- NOTE | 2017-10-09 17:43 | P.CONS ---
History of Present Illness - Reason for Consult Consult date: 10/09/17 asthma Requesting physician: Earnest Bradley - Chief Complaint left knee pain - History of Present Illness Patient is a 56-year-old female with a past medical history of borderline hypertension, arthritis, asthma, acid reflux and multiple other conditions as listed below months for elective left total knee arthroplasty. She underwent a left TKA with Dr. Uribe today to without complications. We are asked to consult for management of her asthma and other medical conditions. Patient seen and examined at bedside. She states that over the last several weeks she has had use her rescue inhaler twice and start taking her Singulair intermittently. She had not been requiring the use in several months. She does not feel that her asthma is exacerbated and her breathing has been good both before and after surgery. She otherwise has felt her normal state of health. She denies any fevers, coughs, colds, nausea, vomiting, diarrhea, constipation, and dysuria. She has not missed any doses of her medications or taking any extra doses of medications. She last saw Dr. Vásquez every 2 weeks ago for preoperative clearance and did not require adjustment of any of her medications. She is feeling well after surgery. She has not had any postoperative nausea, shortness of breath, or dizziness. 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 BILATERAL KNEE ARTHOSCOPY, BREAST BX-NEG. CYST REMOVED LEFT BREAST, OVARIAN CYST REMOVED NOT LAPAROSCOPIC. TUMOR RIGHT KNEE EXTRACTED- CANCEROUS. D AND C. . Past Anesthesia/Blood Transfusion Reactions: No Reported Reaction Smoking Status: Former smoker Past Alcohol Use History: Rare Past Drug Use History: None Reported - Past Family History Mother Family Medical History: AFIB Father Family Medical History: Cancer Medications and Allergies Home Medications Medication Instructions Recorded Confirmed Type Citalopram Hydrobromide [CeleXA] 20 mg PO HS 12/07/14 10/09/17 History Dextroamphetamine/Amphetamine 30 mg PO Q72H 12/07/14 10/09/17 History [Adderall] Montelukast [Singulair] 10 mg PO DAILY PRN 12/07/14 10/09/17 History Zolpidem [Ambien] 5 mg PO HS PRN 12/07/14 10/09/17 History Albuterol Sulfate [Ventolin HFA] 2 puff INHALATION RT-Q6H PRN 12/09/14 10/09/17 History Cholecalciferol [Vitamin D3] 1,000 unit PO DAILY 12/09/14 10/09/17 History Multivitamins, Thera [Multivitamin 1 tab PO Q7D 12/09/14 10/09/17 History (formulary)] [place]-3 Fatty Acids/Fish Oil [Fish 1 cap PO DAILY 12/09/14 10/09/17 History Oil 1,000 mg Softgel] Omeprazole [PriLOSEC] 20 mg PO DAILY PRN 03/28/16 10/09/17 History HYDROcodone/APAP 7.5-325MG [Alma 1 tab PO Q6HR PRN 10/04/16 10/09/17 History 7.5-325] Ibuprofen [Motrin] 600 mg PO DAILY PRN 10/04/16 10/09/17 History Aspirin 81 mg PO DAILY 09/20/17 10/09/17 History Gabapentin [Neurontin] 300 mg PO DAILY 09/20/17 10/09/17 History Rivaroxaban [Xarelto] 10 mg PO DAILY #12 tab 10/09/17 Rx Allergies Allergy/AdvReac Type Severity Reaction Status Date / Time scopolamine Allergy tachycardia Verified 10/09/17 10:33 Physical Exam Osteopathic Statement: *. No significant issues noted on an osteopathic structural exam other than those noted in the History and Physical/Consult. Vitals: Vital Signs Temp Pulse Pulse Resp BP BP Pulse Ox 10/09/17 17:10 97.3 F L 86 16 118/71 94 L 10/09/17 16:02 75 16 136/62 97 10/09/17 15:30 75 18 138/67 97 10/09/17 14:45 75 18 108/67 97 10/09/17 14:00 75 18 147/68 97 10/09/17 13:30 74 18 149/65 97 10/09/17 13:00 74 18 149/69 97 10/09/17 12:45 89 16 136/65 97 10/09/17 12:31 74 16 150/67 97 10/09/17 12:16 82 16 140/65 97 10/09/17 12:00 60 16 131/58 97 10/09/17 11:46 68 16 142/68 97 10/09/17 11:31 86 16 135/65 97 10/09/17 11:15 72 16 135/65 97 10/09/17 11:00 81 16 127/63 97 10/09/17 10:45 88 16 120/58 97 10/09/17 10:36 98.1 F 84 16 118/56 97 10/09/17 07:18 68 150/72 10/09/17 06:25 97.7 F 66 16 147/57 95 Intake and Output 10/09/17 10/09/17 10/09/17 06:59 14:59 22:59 Intake Total 300 1001 Output Total 825 400 Balance 300 176 -400 Intake: IV 300 1001 Output: Urine 775 400 Estimated Blood Loss 50 General: non toxic, no distress, appears at stated age, normal weight Derm: no unusual rashes/lesions no unusual ecchymoses, warm, dry Head: atraumatic, normocephalic, symmetric Eyes: EOMI, no lid lag, anicteric sclera, pupils equal round reactive to light ENT: Nose and ears atraumatic, no thrush, no pharyngeal erythema Neck: No thyromegaly, no cervical lymphadenopathy, trachea midline, supple Mouth: no lip lesion, mucus membranes moist Cardiovascular: S1S2 reg, no murmur, positive posterior tibial pulse bilateral, no edema, capillary refill less than 2 seconds Lungs: CTA bilateral, no rhonchi, no rales , no accessory muscle use Abdominal: soft, nontender to palpation, no guarding, no appreciable organomegaly, normal bowel sounds Ext: Left knee with dressing in place, and drain in place with serosanguineous fluid , able to wiggle bilateral toes, no gross muscle atrophy, muscle strength 5 out of 5 in all upper extremities grossly, no contractures, Neuro: CN II-XI grossly intact, light touch intact all 4 extremities, finger to nose within normal limits, Psych: Alert, oriented, appropriate affect Results Labs: Abnormal Lab Results - Last 24 Hours (Table) 10/09/17 Range/Units 06:31 POC Glucose (mg/dL) 116 H (75-99) mg/dL Assessment and Plan Assessment: Left total knee arthroplasty -Pain control -PT consultation -DVT prophylaxis per or follow-up with those are also -Bowel regiment -Check CBC in a.m. Mild intermittent asthma -When necessary albuterol inhaler -Patient does not want to take Singulair while here Borderline hypertension, controlled -Blood pressure controlled after surgery not on any chronic medications for this Shiftwork sleep disorder with ADHD -Only takes Adderall every 30 hours will hold at this point in time GERD -PPI Thank you for allowing us to participate in the care of this patient. Home medications resumed as indicated. Do not hesitate to contact us with questions. Someone can be reached from the [facility] hospitalist group at all hours of the day at [phone].
[2017-10-09] MEDS: ceFAZolin IN SWFI 2 GM/20 ML SYRINGE IVP SCH ×2 (17:45→23:24)
[2017-10-09] MEDS: GABAPENTIN 300 MG CAP PO SCH (18:07)
[2017-10-09] MEDS: HYDROmorphone 2 MG/ML 1 ML SYRINGE IVP PRN (19:40)
[2017-10-09] MEDS ORDERED: CITALOPRAM HYDROBROMIDE 20 MG TAB PO SCH (21:00)
[2017-10-09] MEDS ORDERED: SENNOSIDES-DOCUSATE SODIUM 1 EACH TAB PO SCH (21:00)
[2017-10-10] MEDS: HYDROmorphone 2 MG/ML 1 ML SYRINGE IVP PRN (00:47)
[2017-10-10] MEDS: LACTATED RINGERS 1,000 ML IV SCH (00:49)
--- NOTE | 2017-10-10 05:59 | P.PN ---
Progress Note - Text The patient is status post left adductor canal catheter placement. The catheter was placed for postoperative pain control, status post total left arthroplasty. Ropivacaine 0.2% is infusing at 10 mLs per hour. The patient has no complaints of left lower extremity numbness or weakness. Patient's VAS score is 1 -10. Assessment: Patient's adductor canal catheter is in place and working appropriately. Plan: continue infusion and adjust it as needed.
[2017-10-10 07:04] LABS: Basophils % (A) 0 %; Eosinophils % (A) 0 %; HCT 38.9 % (34.0-46.0); HGB 12.3 gm/dL (11.4-16.0); Lymphocytes # (A) 0.9 k/uL (1.0-4.8); Lymphocytes % (A) 4 %; MCH 27.7 pg (25.0-35.0); MCHC 31.6 g/dL (31.0-37.0); MCV 87.8 fL (80.0-100.0); Mean Platelet Volume 8.2; Monocytes # (A) 0.9 k/uL (0-1.0); Monocytes % (A) 4 %; Neutrophils # (A) 20.2 k/uL (1.3-7.7); Neutrophils % (A) 91 %; Platelet Count 296 k/uL (150-450); RBC 4.43 m/uL (3.80-5.40); RDW 14.7 % (11.5-15.5); WBC 22.2 k/uL (3.8-10.6)
[2017-10-10 07:08] VITALS: BP 118/65; PULSE 65; TEMP 98.3
[2017-10-10] MEDS: traMADol 50 MG TAB PO SCH ×2 (08:58→12:55)
[2017-10-10] MEDS: GABAPENTIN 300 MG CAP PO SCH (08:59)
[2017-10-10] MEDS ORDERED: FAMOTIDINE 20 MG TAB PO SCH (09:00)
[2017-10-10] MEDS ORDERED: NON-FORMULARY DRUG (Omega-3 Fatty Acids/Fish Oil [Fish Oil 1,000 Mg Softgel] 1 CAP) PO SCH (09:00)
[2017-10-10] MEDS ORDERED: CHOLECALCIFEROL 1,000 UNIT TAB PO SCH (09:00)
[2017-10-10] MEDS ORDERED: RIVAROXABAN 10 MG TAB PO SCH (09:00)
--- NOTE | 2017-10-10 10:12 | P.PN ---
Subjective Progress Note Date: 10/10/17 Principal diagnosis: patient is seen and examined in follow up for hypertension and post op management 56 year old female post elective left knee TKA, POD #1 patient doing well, denies any chest pain, trouble breathing, fever or chills. She is walking with assistance, passed urine and gasses but no bowel movement yet reports that pain is well controlled Objective - Vital Signs Vital signs: Vital Signs Temp 98.3 F 10/10/17 07:00 Pulse 65 10/10/17 07:00 Resp 16 10/10/17 07:00 BP 118/65 10/10/17 07:00 Pulse Ox 96 10/10/17 07:00 Intake & Output 10/09/17 10/10/17 10/10/17 18:59 06:59 18:59 Intake Total 1001 600 Output Total 1350 910 Balance -349 -310 Weight 92.986 kg Intake: IV 1001 600 Lactated Ringers 1,000 ml 600 @ 60 mls/hr IV .[id number] [facility] Rx#:[id number] Output: Drainage 125 110 Left Knee 125 110 Urine 1175 800 Uretheral (Prieto) 200 Estimated Blood Loss 50 Other: Voiding Method Toilet # Voids 1 - Exam Constitutional: vital signs stable, Not in acute distress, pleasant, conversant Lungs: Clear to auscultation bilaterally, clear to percussion, normal respiratory effort no use of accessory muscles Cardiovascular: Regular rate and rhythm, no murmurs, no gallops, no rubs, no peripheral edema Extremities: No digital cyanosis or clubbing, peripheral pulses palpable and equal over bilateral radial arteries and dorsalis pedis artery, no calf muscle tenderness Psych: Alert, oriented to place, person and time - Labs CBC & Chem 7: 10/10/17 06:32 Labs: Abnormal Lab Results - Last 24 Hours (Table) 10/10/17 Range/Units 06:32 WBC 22.2 H (3.8-10.6) k/uL Neutrophils # 20.2 H (1.3-7.7) k/uL Lymphocytes # 0.9 L (1.0-4.8) k/uL Assessment and Plan Assessment: 56 year old female with history of arthritis presented for elective left total knee arthroplasty today is postoperative day #1 patient is doing well, medicine was consulted for postoperative medical management Plan: Left total knee arthroplasty POD# 1 Pain is well controlled Patient is ambulating with PT DVT prophylaxis per orthopedic recommendations Leukocytosis most likely reactive postoperatively Patient denies any dysuria, cough, leg pain or swelling All is afebrile Continue to monitor Intermittent asthma DuoNeb when necessary Currently stable Borderline hypertension, controlled Blood pressure is well controlled off medications Patient does not take any medications for blood pressure on regular basis Shiftwork sleep disorder with ADHD -Only takes Adderall every 30 hours will hold at this point in time GERD -PPI Patient is stable from internal medicine standpoint for discharge
--- NOTE | 2017-10-10 10:50 | P.PN ---
Subjective Progress Note Date: 10/10/17 Principal diagnosis: Status post left total knee arthroplasty Patient is seen today resting in her hospital bed, her is present at bedside. Patient's pain is controlled at this time. She's ambulated well with physical therapy. She denies any headaches, lightheadedness, chest pain or shortness of breath. Objective - Vital Signs Vital signs: Vital Signs Temp 98.3 F 10/10/17 07:00 Pulse 65 10/10/17 07:00 Resp 16 10/10/17 07:00 BP 118/65 10/10/17 07:00 Pulse Ox 96 10/10/17 07:00 Intake & Output 10/09/17 10/10/17 10/10/17 18:59 06:59 18:59 Intake Total 1001 600 Output Total 1350 910 Balance -349 -310 Weight 92.986 kg Intake: IV 1001 600 Lactated Ringers 1,000 ml 600 @ 60 mls/hr IV .[id number] [facility] Rx#:[id number] Output: Drainage 125 110 Left Knee 125 110 Urine 1175 800 Uretheral (Prieto) 200 Estimated Blood Loss 50 Other: Voiding Method Toilet # Voids 1 - Exam Left lower extremity: Incision is clean, dry, and intact. The prineo tape is in good condition. There is minimal soft tissue swelling and ecchymosis surrounding the medial and lateral aspects of the incision. Calf is soft, no tenderness with palpation. Plantar flexion, dorsiflexion, EHL, FHL are intact. Sensory exam to light touch throughout the extremity is intact, dorsal pedis pulses 2+. - Labs CBC & Chem 7: 10/10/17 06:32 Labs: Abnormal Lab Results - Last 24 Hours (Table) 10/10/17 Range/Units 06:32 WBC 22.2 H (3.8-10.6) k/uL Neutrophils # 20.2 H (1.3-7.7) k/uL Lymphocytes # 0.9 L (1.0-4.8) k/uL Assessment and Plan Plan: Assessment: 1. Postop day #1 status post left total knee arthroplasty Plan: 1. Pain control, we'll discharge home on oral medication 2. Home therapy and nursing after discharge 3. GI and DVT prophylaxis, Xarelto 10 mg once a day after discharge 4. Wound care instructions were discussed 5. Medical recommendations 6. Discharge planning: Patient will be discharged home today Time with Patient: Less than 30
--- NOTE | 2017-10-10 10:53 | P.DS ---
Providers Date of admission: 10/09/17 05:56 Expected date of discharge: 10/10/17 Attending physician: Earnest Bradley Consults: 10/09/17 10:17 Consult Physician Routine Consulting Provider: Danay Sandhu Reason/Comments: Medical management Do you want consulting provider notified?: Yes Primary care physician: Danay Sandhu Hospital Course: Date of admission: 10/09/2017 Date of discharge: 10/10/2017 Admission diagnosis: Status post left total knee arthroplasty Discharge diagnosis: Same Attending physician: Dr. Bradley Surgical procedures: left total knee arthroplasty Brief history: Patient is a a 56-year-old female with history of progressive primary left knee osteoarthritis. At this point patient has failed conservative treatment measures and has opted to proceed with a elective left total knee arthroplasty. Hospital course: Details of patient's surgery can be found in operative report. Patient tolerated the procedure well and was subsequently transported to orthopedic floor. Patient's orthopeidc and medical care was provided daily. Patient had daily laboratory tests performed for evaluation of overall blood counts. Patient had daily physical therapy to include strengthening range of motion as well as education with walker ambulation. Patient had daily CPM usage as part of their physical therapy program. Patient was treated with Xarelto for their postoperative DVT prophylaxis during their inpatient stay. Patient was noted to have a relatively uneventful postoperative course. Patient reported satisfactory pain control with oral pain medications by postoperative day 0. Patient showed satisfactory progress with physical therapy. Patient moved steadily through the program and had no difficulty meeting the goals by postoperative day 1. Given patient's otherwise satisfactory course and having met physical therapy goals, plan is to discharge patient home on postoperative day 1. Discharge condition/disposition: Patient will be discharged home in stable condition. Discharge medications: Instructions are given on resumption of patient's normal daily medications per primary care recommendation, in addition patient will be prescribed [place] 10 mg/325 mg, tramadol 50 mg, Colace 100 mg, Xarelto 10 mg. Discharge instructions: 1. Wound care and infection precautions, keep incision dry and covered while showering, no lotions, creams, moisturizers. No soaking, tubs, pools, hottubs. Do not scrub over the incision. 2. Weight-bear as tolerated with walker / cane until follow-up. 3. Ice and elevate when necessary. Do not exceed 20 minutes per hour with ice pack. 4. Utilize compression sleeve until seen at first follow up appointment. 5. Visiting nursing care. 6. Home physical therapy. 7. Pain meds and anticoagulants per prescription. 8. Pain medication has potential to cause constipation. Increase oral fluid and fiber intake. Contact primary care provider if you have not had a bowel movement within 48 hours after discharge 9. No anti-inflammatory medication until discussed at first post operative visit, this including Motrin, Aleve, Mobic, Diclofenac. 10. Follow up in office at 2 weeks postop with Travis Cassidy PA-C 11. Follow up with your primary care doctor 7-10 days after discharge. 12. Contact [facility] with any questions, . Procedures: Left total knee arthroplasty Patient Condition at Discharge: Good Plan - Discharge Summary Discharge Rx Participant: Yes New Discharge Prescriptions: New Rivaroxaban [Xarelto] 10 mg PO DAILY #12 tab Docusate [Colace] 100 mg PO DAILY #30 capsule Hydrocodone/Acetaminophen [[place] 10-325] 1 each PO Q6H PRN #40 tab PRN Reason: Pain traMADol HCl [Ultram] 50 mg PO Q6H PRN #30 tab PRN Reason: Pain No Action Zolpidem [Ambien] 5 mg PO HS PRN PRN Reason: Insomnia Montelukast [Singulair] 10 mg PO DAILY PRN PRN Reason: Allergic Reaction Dextroamphetamine/Amphetamine [Adderall] 30 mg PO Q72H Citalopram Hydrobromide [CeleXA] 20 mg PO HS [place]-3 Fatty Acids/Fish Oil [Fish Oil 1,000 mg Softgel] 1 cap PO DAILY Multivitamins, Thera [Multivitamin (formulary)] 1 tab PO Q7D Cholecalciferol [Vitamin D3] 1,000 unit PO DAILY Albuterol Sulfate [Ventolin HFA] 2 puff INHALATION RT-Q6H PRN PRN Reason: Shortness Of Breath Omeprazole [PriLOSEC] 20 mg PO DAILY PRN PRN Reason: reflux Gabapentin [Neurontin] 300 mg PO DAILY Aspirin 81 mg PO DAILY Discharge Medication List Citalopram Hydrobromide [CeleXA] 20 mg PO HS 12/07/14 [History] Dextroamphetamine/Amphetamine [Adderall] 30 mg PO Q72H 12/07/14 [History] Montelukast [Singulair] 10 mg PO DAILY PRN 12/07/14 [History] Zolpidem [Ambien] 5 mg PO HS PRN 12/07/14 [History] Albuterol Sulfate [Ventolin HFA] 2 puff INHALATION RT-Q6H PRN 12/09/14 [History] Cholecalciferol [Vitamin D3] 1,000 unit PO DAILY 12/09/14 [History] Multivitamins, Thera [Multivitamin (formulary)] 1 tab PO Q7D 12/09/14 [History] [place]-3 Fatty Acids/Fish Oil [Fish Oil 1,000 mg Softgel] 1 cap PO DAILY [History] Omeprazole [PriLOSEC] 20 mg PO DAILY PRN 03/28/16 [History] Aspirin 81 mg PO DAILY 09/20/17 [History] Gabapentin [Neurontin] 300 mg PO DAILY 09/20/17 [History] Rivaroxaban [Xarelto] 10 mg PO DAILY #12 tab 10/09/17 [Rx] Docusate [Colace] 100 mg PO DAILY #30 capsule 10/10/17 [Rx] Hydrocodone/Acetaminophen [[place] 10-325] 1 each PO Q6H PRN #40 tab 10/10/17 [Rx] traMADol HCl [Ultram] 50 mg PO Q6H PRN #30 tab 10/10/17 [Rx] Follow up Appointment(s)/Referral(s): Сергей Cassidy PAC [PHYSICIAN PRESCRIPTIONIST] - 2 Weeks Activity/Diet/Wound Care/Special Instructions: Orthopedic Discharge Instructions: 1. Wound care and infection precautions, keep incision dry and covered while showering, no lotions, creams, moisturizers. No soaking, pools, hot tubs. Do not scrub over incision. 2. Weight-bear as tolerated with walker / cane until follow-up. 3. Ice and elevate when necessary. Do not exceed 20 minutes per hour with ice pack. 4. Utilize compression sleeve until seen at first follow up appointment. 5. Visiting nursing care. 6. Home physical therapy including home CPM. 7. Pain meds and anticoagulants per prescription. 8. Pain medication has potential to cause constipation. Increase oral fluid and fiber intake. Contact primary care provider if you have not had a bowel movement within 48 hours after discharge. 9. No anti-inflammatory medication until discussed at first post operative visit, this including Motrin, Aleve, Mobic, Diclofenac. 10. Follow up in office at 2 weeks postop with Travis Cassidy PA-C 11. Follow up with your primary care doctor 7-10 days after discharge. 12. Contact [facility] with any questions, . Discharge Disposition: HOME WITH HOME HEALTH SERVICES
== END 2017-10-10 13:58 | disposition home health service (06) | DRG 470 ==
LOC: 2ORMAIN 05:56 → 3SUR 10:14
PROVIDERS: ADMIT Orthopaedic Surgery; ATTEND Orthopaedic Surgery
PROC: 0SRD0J9 Replacement of Left Knee Joint with Synthetic Substitute, Cemented, Open Approach (ICD-10-PCS; principal; 2017-10-09 08:00)
DX: M17.12 Unilateral primary osteoarthritis, left knee (principal); F90.9 Attention-deficit hyperactivity disorder, unspecified type; J45.20 Mild intermittent asthma, uncomplicated; K21.9 Gastro-esophageal reflux disease without esophagitis; Z79.01 Long term (current) use of anticoagulants; Z79.82 Long term (current) use of aspirin; Z79.899 Other long term (current) drug therapy; Z87.891 Personal history of nicotine dependence; Z96.651 Presence of right artificial knee joint; Z79.891 Long term (current) use of opiate analgesic; Z79.51 Long term (current) use of inhaled steroids
CPT/HCPCS: 85025; 88300

== ENCOUNTER → 2017-12-14 | Outpatient (CLI) | payer MEDICAID ==
[2017-12-14 20:38] LABS: Basophils % (A) 0 %; Eosinophils # (A) 0.2 k/uL (0-0.7); Eosinophils % (A) 2 %; HCT 43.5 % (34.0-46.0); HGB 13.8 gm/dL (11.4-16.0); Lymphocytes # (A) 1.8 k/uL (1.0-4.8); Lymphocytes % (A) 22 %; MCH 27.2 pg (25.0-35.0); MCHC 31.8 g/dL (31.0-37.0); MCV 85.7 fL (80.0-100.0); Mean Platelet Volume 8.6; Monocytes # (A) 0.6 k/uL (0-1.0); Monocytes % (A) 7 %; Neutrophils # (A) 5.4 k/uL (1.3-7.7); Neutrophils % (A) 67 %; Platelet Count 318 k/uL (150-450); RBC 5.08 m/uL (3.80-5.40); RDW 13.4 % (11.5-15.5); WBC 8.1 k/uL (3.8-10.6)
[2017-12-14 20:49] LABS: ALT 31 U/L (9-52); AST 24 U/L (14-36); Albumin 4.3 g/dL (3.5-5.0); Alkaline Phosphatase 60 U/L (38-126); Anion Gap 12 mmol/L; Blood Urea Nitrogen 16 mg/dL (7-17); Calcium 9.8 mg/dL (8.4-10.2); Carbon Dioxide 28 mmol/L (22-30); Chloride 102 mmol/L (98-107); Cholesterol 243 mg/dL (<200); Glucose 117 mg/dL (74-99); HDL Cholesterol 63 mg/dL (40-60); LDL Cholesterol,Calculated 128 mg/dL (0-99); Potassium 4.7 mmol/L (3.5-5.1); Sodium 142 mmol/L (137-145); Total Bilirubin 0.4 mg/dL (0.2-1.3); Total Protein 7.4 g/dL (6.3-8.2); Triglycerides 260 mg/dL (<150)
[2017-12-15 00:22] LABS: Vitamin D 25 Hydroxy 26.4 ng/mL (30.0-100.0)
== END | disposition home or self-care (01) ==
LOC: MMGSC 12:49
PROVIDERS: ATTEND Family Medicine
DX: E55.9 Vitamin D deficiency, unspecified (principal); R53.83 Other fatigue
CPT/HCPCS: 36415; 80053; 80061; 82306; 82607; 84439; 84443; 85025

== ENCOUNTER 2018-02-08 10:38 | Day surgery (SDC) | payer MEDICAID ==
[2018-02-06 15:21] VITALS: BMI 34.9
[~2018-02-08 10:38] MED LIST changes: -ACETAMINOPHEN TAB 500 MG TAB PO ONE; -DEXAMETHASONE SOD PHOSPHATE 10 MG/ML 1 ML VIAL IV ONE; -MELOXICAM 7.5 MG TAB PO ONE; -MIDAZOLAM 2 MG/2 ML VIAL IV PRN; -ONDANSETRON 4 MG/2 ML VIAL IVP ONE; -TRANEXAMIC ACID 1,000 MG in SODIUM CHLORIDE 0.9% 50 ML IVPB ONE; -ceFAZolin IN SWFI 2 GM/20 ML SYRINGE IVP ONE
[2018-02-08] MEDS: LACTATED RINGERS 1,000 ML IV SCH ×2 (12:04→12:19)
[2018-02-08 12:05] VITALS: RESP 18; TEMP 98.2
[2018-02-08 12:08] LABS: Glucose,Whole Blood 110 mg/dL (75-99)
[2018-02-08] MEDS ORDERED: PROPOFOL 10 MG/ML 20 ML VIAL IV ONE (12:23)
--- NOTE | 2018-02-08 12:41 | P.PCN ---
Date of Procedure: 02/08/18 Procedure(s) Performed: BRIEF HISTORY: Patient is a 57]-year-old pleasant white female, scheduled for an elective colonoscopy as a part of evaluation of change in bowel habits for the last 6 months duration. She is been having alternating diarrhea and constipation with change in stool caliber. PROCEDURE PERFORMED: Colonoscopy. PREOPERATIVE DIAGNOSIS: Change in bowel Habits of 6 months duration. IV sedation per Anesthesia. PROCEDURE: After informed consent was obtained, the patient, was brought into the endoscopy unit. IV sedation was administered by Anesthesia under continuous monitoring. Digital rectal examination was normal. Initially the Olympus CF- 160 flexible video colonoscope was then inserted in the rectum, gradually advanced into the cecum without any difficulty. Careful examination was performed as the scope was gradually being withdrawn. Ileocecal valve and the appendiceal orifice were visualized and appeared normal. Prep was excellent. Mucosa of the cecum, ascending colon, transverse colon, descending colon, sigmoid colon, and rectum appeared normal. Retroflexion was performed in the rectum and no lesions were seen. The patient tolerated the procedure well. IMPRESSION: Normal-appearing colon from rectum to cecum with no evidence of colorectal neoplasia. RECOMMENDATIONS: Findings of this examination were discussed with the patient as well as a family. She was advised to have a repeat screening colonoscopy in 10 years. She will be a high-fiber diet and take fiber supplements as needed.
[2018-02-08 13:08] VITALS: BP 134/74; PULSE 73
== END 2018-02-08 13:24 | disposition home or self-care (01) ==
LOC: ORWHC2ENDO 10:38
PROVIDERS: ATTEND Internal Medicine Gastroenterology
DX: R19.4 Change in bowel habit (principal); I10 Essential (primary) hypertension; E78.5 Hyperlipidemia, unspecified; J45.909 Unspecified asthma, uncomplicated; F90.9 Attention-deficit hyperactivity disorder, unspecified type; F32.9 Major depressive disorder, single episode, unspecified; M79.7 Fibromyalgia; K21.9 Gastro-esophageal reflux disease without esophagitis; N85.00 Endometrial hyperplasia, unspecified; Z96.653 Presence of artificial knee joint, bilateral; Z79.82 Long term (current) use of aspirin; Z79.899 Other long term (current) drug therapy; Z88.8 Allergy status to other drugs, medicaments and biological substances
CPT/HCPCS: 45378; J2704

== ENCOUNTER → 2018-03-28 | Outpatient (CLI) | payer MEDICAID ==
--- NOTE | 2018-03-28 18:37 | CONS ---
CONSULTATION DATE OF SERVICE: 03/28/2018 This patient is a 57-year-old lady who has been evaluated in the sleep center for her sleep problems with difficulties maintaining sleep and also with snoring. 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 On working days she sleeps from about 8 or 8:30 a.m. until 2:30 p.m. On days off, she sleeps from around 11 or 12 midnight until around 9:30 or 10:00 a.m. She does have problems with falling asleep sometimes. She has a TV set in the bedroom. She sleeps her back and side, with snoring and awakenings from sleep several times, including heartburn, grinding teeth, restless legs and nocturia. After sleep she may wake up tired, has difficulties paying attention, has problems with memory, concentration, irritability, depression and anxiety. She is on treatment with Adderall for ADD. [place] Sleepiness Scale is 5. PAST MEDICAL HISTORY: 1. ADD. 2. Anxiety. 3. History of asthma. 4. History of fibromyalgia. PAST SURGICAL HISTORY: , bilateral knee replacement. MEDICATIONS: 1. Albuterol. 2. Adderall. 3. Ambien. 4. Gabapentin. 5. Celexa. 6. Singulair. 7. Motrin. SOCIAL HISTORY: Positive for smoking in the past; quit 35 years ago. Alcohol consumption occasional. FAMILY HISTORY: Hyperlipidemia, hyperlipidemia, stroke, fibromyalgia, arthritis, asthma, sinus headaches, lung problems, sinus problems, sleep apnea, snoring, headaches, cancer, acid reflux, diabetes, thyroid problems. PHYSICAL EXAMINATION: GENERAL A pleasant lady without distress. VITAL SIGNS: BP up to 171/63, HR 92, RR 16, height 5 feet 5 inches, weight 210.4, BMI 35. Temperature 98.1. Oxygen saturation at room air 97%. HEENT: PERRLA, EOMI. Evaluation of oropharynx showed tongue protrudes midline; moderately low position of soft palate. Tonsils present bilaterally, mid size. NECK: Supple. No JVD. Thyroid is not palpable. LUNGS: Clear to percussion and to auscultation. Good air exchange. No wheezing or rhonchi. HEART: S1, S2 regular. No murmurs, gallops or rubs. ABDOMEN: Obese. EXTREMITIES : No clubbing or cyanosis. LEAD ORACLE DEVELOPER: Awake, alert, and oriented X3. Cranial nerves 2 to 7 intact. There is no fasciculation or atrophy. noted. No focal deficits observed. IMPRESSION: 1. Snoring, awakenings from sleep with nocturia, moderately low position of soft palate, increasing weight for the last 5 years of around 25 pounds; obstructive sleep apnea-hypopnea syndrome. 2. Menopause for 3 years. 3. Obesity; body mass index 35. 4. History of fibromyalgia. 5. History of attention deficit disorder. 6. History of anxiety. 7. Status post . 8. Status post bilateral knee replacement. 9. Asthma. 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 PLAN: 1. Sleep study for evaluation of patient's breathing during sleep. 2. Losing weight. 3. Sleep hygiene with a regular sleep schedule for 8 hours. 4. No driving if feeling any sleepiness. Thank you very much for allowing me to participate in the management of your patient. Sincerely, Bear Landrum MD, PhD, FAASM Diplomat of [place] [employer] [place] [employer] Hair Sample Matcher of [facility] [place] MMODL / IJN: [id number] /
== END | disposition home or self-care (01) ==
LOC: SLEEP 17:00
PROVIDERS: ATTEND Internal Medicine
DX: G47.33 Obstructive sleep apnea (adult) (pediatric) (principal); E66.9 Obesity, unspecified; J45.909 Unspecified asthma, uncomplicated; G47.9 Sleep disorder, unspecified; Z68.35 Body mass index [BMI] 35.0-35.9, adult; Z96.653 Presence of artificial knee joint, bilateral; Z98.890 Other specified postprocedural states; Z87.39 Personal history of other diseases of the musculoskeletal system and connective tissue; Z86.59 Personal history of other mental and behavioral disorders; Z87.891 Personal history of nicotine dependence; Z79.899 Other long term (current) drug therapy; Z79.1 Long term (current) use of non-steroidal anti-inflammatories (NSAID); Z78.0 Asymptomatic menopausal state
CPT/HCPCS: 99211

== ENCOUNTER → 2018-05-24 | Outpatient (CLI) | payer MEDICAID ==
--- NOTE | 2018-05-24 13:30 | US ---
EXAMINATION TYPE: US thyroid st tissue head/neck DATE OF EXAM: 05/24/2018 COMPARISON: NONE CLINICAL HISTORY: E079 disorder of the thyroid. Difficulty swallowing, weight gain, fatigue GLAND SIZE: Right Lobe: 4.2 x 1.3 x 1.6 cm Overall Parenchyma: homogenous Left Lobe: 4.6 x 1.1 x 1.3 cm Overall Parenchyma: homogeneous Isthmus Thickness: 0.3 cm NODULES RIGHT: # of nodules measured on right: 0 LEFT: # of nodules measured on left: 0 ISTHMUS: # of nodules measured in the isthmus: 0 Bilateral neck scanned, lymph nodes noted bilaterally Sub-centimeter nodules noted bilaterally measuring less than 0.5cm IMPRESSION: No distinct abnormality seen.
== END | disposition home or self-care (01) ==
LOC: RADUSWWP 12:01
PROVIDERS: ATTEND Family Medicine
DX: E07.9 Disorder of thyroid, unspecified (principal)
CPT/HCPCS: 76536

== ENCOUNTER → 2018-07-25 | Outpatient (CLI) | payer MEDICAID ==
--- NOTE | 2018-07-25 08:36 | US ---
EXAMINATION TYPE: US pelvis complete transvag DATE OF EXAM: 07/25/2018 COMPARISON: 2017 CLINICAL HISTORY: N95.0 Post menopausal bleeding. TECHNIQUE: . Transabdominal sonographic images of the pelvis were acquired. Transvaginal sonographi c images were medically necessary to better assess the following anatomy: endometrium Date of LMP: 3 years ago EXAM MEASUREMENTS: Uterus: 7.2 x 4.5 x 4.3 cm Endometrial Stripe: 1.2 cm Right Ovary: 1.8x1.1x1.7 cm Left Ovary: not seen 1. Uterus: Anteverted heterogenous, nabothian cyst 0.4 x 0.4 x 0.5 cm 2. Endometrium: thick lower segment mixed area 0.8 x 0.7 x0.6 cm , mid endometrium thick and small c ystic areas within 3. Right Ovary: wnl portions seen 4. Left Ovary: Obscured by overlying bowel gas . 5. Bilateral Adnexa: Obscured by overlying bowel gas 6. Posterior cul-de-sac: wnl IMPRESSION: Abnormal endometrial thickness of 1.2 cm in a postmenopausal female with heterogenous reg ion of the endometrium within the lower uterine segment that may represent a polyp or endometrial mas s. Direct visualization and sampling are recommended.
== END | disposition home or self-care (01) ==
LOC: RADUSWWP 06:46
PROVIDERS: ATTEND Obstetrics & Gynecology
DX: R93.89 Abnormal findings on diagnostic imaging of other specified body structures (principal); N95.0 Postmenopausal bleeding
CPT/HCPCS: 76830; 76856

== ENCOUNTER → 2018-08-23 | Outpatient (CLI) | payer MEDICAID ==
[2018-08-23 15:05] LABS: Basophils % (A) 0 %; Eosinophils # (A) 0.2 k/uL (0-0.7); Eosinophils % (A) 2 %; HCT 43.3 % (34.0-46.0); Lymphocytes # (A) 2.2 k/uL (1.0-4.8); Lymphocytes % (A) 24 %; MCH 28.2 pg (25.0-35.0); MCHC 32.3 g/dL (31.0-37.0); MCV 87.5 fL (80.0-100.0); Mean Platelet Volume 7.3; Monocytes # (A) 0.6 k/uL (0-1.0); Monocytes % (A) 6 %; Neutrophils # (A) 6.1 k/uL (1.3-7.7); Neutrophils % (A) 66 %; Platelet Count 315 k/uL (150-450); RBC 4.95 m/uL (3.80-5.40); RDW 13.7 % (11.5-15.5); WBC 9.3 k/uL (3.8-10.6)
== END | disposition home or self-care (01) ==
LOC: LABPAT 14:20
PROVIDERS: ATTEND Obstetrics & Gynecology
DX: Z01.812 Encounter for preprocedural laboratory examination (principal)
CPT/HCPCS: 36415; 85025

== ENCOUNTER 2018-08-29 11:20 | Day surgery (SDC) | payer MEDICAID ==
[2018-08-26 11:17] VITALS: BMI 34.9
--- NOTE | 2018-08-28 20:21 | P.HPOB ---
History of Present Illness H&P Date: 08/28/18 Chief Complaint: Postmenopausal bleeding, endometrial thickening This is a 57-year-old female 6 para 3 who presents for dilation and curettage with hysteroscopy secondary to postmenopausal bleeding and endometrial thickening. She started bleeding on July 12 and then started bleeding again on August 10. She had just started some Synthroid in June. Her ultrasound showed a uterus measuring 7.2 x 4.5 x 4.3 cm with endometrial thickness of 1.2 cm. There was a thickened lower uterine segment area measuring 0.8 cm and mid endometrial thickness with cystic areas within. She has used progesterone treatment for history of simple endometrial hyperplasia. Her last progesterone therapy was in 2016. Her last dilation and curettage in August 2017 showed a benign endometrial polyp with no hyperplasia. Obstetrical history: . History of 2 deliveries and 1 vaginal delivery. History of 3 miscarriages. Gynecologic history: History of herpes. No history of abnormal Pap smears. Social history: She is . She was currently works at the [employer]. Review of Systems Constitutional: Reports fatigue Eyes: denies blurred vision, denies pain Respiratory: Denies cough Gastrointestinal: Denies abdominal pain, Denies diarrhea, Denies nausea, Denies vomiting Genitourinary: Reports abnormal vaginal bleeding, Reports pelvic pain Menstruation: Reports amenorrhea, Reports postmenopausal Musculoskeletal: Reports low back pain, Reports myalgias Integumentary: Denies pruritus, Denies rash Neurological: Reports numbness Psychiatric: Reports anxiety, Reports difficulty concentrating, Reports insomnia Past Medical History Past Medical History: Asthma, Cancer, Fibromyalgia, GERD/Reflux, Hyperlipidemia , Osteoarthritis (OA) Additional Past Medical History / Comment(s): 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 Shift work sleep disorder and ADD, varicose veins, hypoglycemia, borderline HTN and mild hyperlipidemia - no meds. History of Any Multi-Drug Resistant Organisms: None Reported Past Surgical History: Breast Surgery, Section, Joint Replacement, Orthopedic Surgery Additional Past Surgical History / Comment(s): Bilateral knee replacements, BILATERAL KNEE ARTHOSCOPY, BREAST BX-NEG, CYST REMOVED LEFT BREAST, OVARIAN CYST REMOVED NOT LAPAROSCOPIC. TUMOR RIGHT KNEE EXTRACTED- CANCEROUS. D&C. , COLONOSCOPY Past Anesthesia/Blood Transfusion Reactions: No Reported Reaction Past Psychological History: Anxiety, Depression Smoking Status: Former smoker Past Alcohol Use History: Occasional Past Drug Use History: None Reported - Past Family History Mother Family Medical History: AFIB Father Family Medical History: Cancer Medications and Allergies Home Medications Medication Instructions Recorded Confirmed Type Citalopram Hydrobromide [CeleXA] 20 mg PO HS 12/07/14 08/26/18 History Dextroamphetamine/Amphetamine 30 mg PO Q72H 12/07/14 08/26/18 History [Adderall] Montelukast [Singulair] 10 mg PO DAILY PRN 12/07/14 08/26/18 History Zolpidem [Ambien] 5 mg PO HS PRN 12/07/14 08/26/18 History Albuterol Sulfate [Ventolin HFA] 2 puff INHALATION RT-Q6H PRN 12/09/14 08/26/18 History Cholecalciferol [Vitamin D3] 1,000 unit PO DAILY 12/09/14 08/26/18 History Omeprazole [PriLOSEC] 20 mg PO DAILY PRN 03/28/16 08/26/18 History Gabapentin [Neurontin] 300 mg PO DAILY 09/20/17 08/26/18 History Aspirin 325 mg PO BID 30 Days #60 tab 10/10/17 08/26/18 Rx Hydrocodone/Acetaminophen [[place] 1 each PO Q6H PRN #40 tab 10/10/17 08/26/18 Rx 10-325] Docusate [Colace] 100 mg PO DAILY PRN 02/06/18 08/26/18 History Levothyroxine Sodium [Synthroid] 50 mcg PO DAILY 08/26/18 08/26/18 History Allergies Allergy/AdvReac Type Severity Reaction Status Date / Time scopolamine Allergy tachycardia Verified 08/26/18 11:12 Exam Osteopathic Statement: *. No significant issues noted on an osteopathic structural exam other than those noted in the History and Physical/Consult. HEENT: Within normal limits Heart: Regular rate and rhythm lungs: Clear to auscultation bilaterally Abdomen: Soft, nontender Pelvic exam: Uterus is mid position, mildly tender, with no adnexal masses noted. Mild tenderness is noted bilaterally. Extremities: Negative Homans Assessment and Plan (1) Endometrial thickening on ultra sound Status: Acute Code(s): R93.8 - ABNORMAL FINDINGS ON DIAGNOSTIC IMAGING OF RAMIRO * DO NOT USE * SNOMED Code(s): 714041997 (2) Post-menopausal bleeding Status: Acute Code(s): N95.0 - POSTMENOPAUSAL BLEEDING SNOMED Code(s): 00648395 Plan: Proceed with dilation and curettage with hysteroscopy. I have discussed the risks, benefits, and alternative therapies for the above- mentioned procedure and for both sedation/anesthesia as well as necessary blood products administration, if indicated, as they pertain to this patient. The patient has indicated her understanding and acceptance of the risks and procedures discussed.
[~2018-08-29 11:20] MED LIST changes: +DEXAMETHASONE SOD PHOSPHATE 10 MG/ML 1 ML VIAL IV ONE; +HYDROmorphone 1 MG/ML 1 ML SYRINGE IVP PRN; +LACTATED RINGERS 1,000 ML IV SCH; +ONDANSETRON 4 MG/2 ML VIAL IVP ONE; +SCOPOLAMINE 1.5MG/72HR PATCH TRANSDERM ONE
[2018-08-29 12:00] VITALS: RESP 16
[2018-08-29 12:01] LABS: Glucose,Whole Blood 111 mg/dL (75-99)
[2018-08-29] MEDS ORDERED: MIDAZOLAM 2 MG/2 ML VIAL IV ONE (12:07)
[2018-08-29] MEDS ORDERED: SUCCINYLCHOLINE CHLORIDE 100 MG/5 ML SYR IV ONE (12:07)
[2018-08-29] MEDS ORDERED: MIDAZOLAM 2 MG/2 ML VIAL ONE (12:07)
[2018-08-29] MEDS ORDERED: PROPOFOL 10 MG/ML 20 ML VIAL IV ONE (12:07)
[2018-08-29] MEDS ORDERED: LIDOCAINE 1% INJ 10MG/ML (20 ML MDV) ONE (12:07)
--- NOTE | 2018-08-29 12:32 | P.OP ---
Date of Procedure: 08/29/18 Preoperative Diagnosis: Postmenopausal bleeding, endometrial thickening Postoperative Diagnosis: Same Procedure(s) Performed: Dilation and curettage with hysteroscopy Anesthesia: CHARLES Surgeon: Fidelia Briceno Estimated Blood Loss (ml): 5 Pathology: other (Endometrial curettings) Condition: stable Disposition: same day Indications for Procedure: This is a 57-year-old female 6 para 3 who presents for dilation and curettage with hysteroscopy secondary to postmenopausal bleeding and endometrial thickening. She started bleeding on July 12 and then started bleeding again on August 10. She had just started some Synthroid in June. Her ultrasound showed a uterus measuring 7.2 x 4.5 x 4.3 cm with endometrial thickness of 1.2 cm. There was a thickened lower uterine segment area measuring 0.8 cm and mid endometrial thickness with cystic areas within. She has used progesterone treatment for history of simple endometrial hyperplasia. Her last progesterone therapy was in 2016. Her last dilation and curettage in August 2017 showed a benign endometrial polyp with no hyperplasia. Operative Findings: Uterus is anteverted and sounded to 7 cm. No adnexal masses are palpated. Upon hysteroscopy a slightly dyssynchronous endometrial pattern was noted. A minimal to moderate amount of endometrial curettings were noted. No specific polyps or fibroids were visualized. Description of Procedure: The patient was taken to the operating room where she is placed in the dorsal lithotomy position. She was prepped and draped in the normal sterile fashion. Bladder is drained with a catheter. Examination is performed under anesthesia. Uterus is found to be anteverted with no adnexal masses palpated. Next a weighted speculum was placed in the patient's vagina. A right angle retractor was used to visualize the cervix. The anterior lip of the cervix is grasped with a single-tooth tenaculum. The uterus is then sounded to 7 cm. Cervix is gently dilated with Mckeon dilators until a hysteroscope could be passed. Hysteroscopy was performed using normal saline. The above noted findings are made and pictures are taken. Hysteroscope was removed and then the cervix is gently dilated further. A polyp forcep was introduced with a minimal to moderate amount of tissue obtained. Next a medium-size sharp curet was introduced and sharp curettage was performed until a gritty texture was noted. A moderate amount of endometrial curettings are obtained. Next the single- tooth tenaculum was removed and the specimen was removed from the field. All other incisions are removed from the vagina. No active bleeding was noted. All sponge and needle counts are correct. The patient is then taken to recovery room in stable condition.
[2018-08-29 12:51] VITALS: TEMP 97.4
[2018-08-29 13:59] VITALS: BP 119/72; PULSE 78
== END 2018-08-29 14:24 | disposition home or self-care (01) ==
LOC: OR 11:20
PROVIDERS: ATTEND Obstetrics & Gynecology
DX: N85.02 Endometrial intraepithelial neoplasia [EIN] (principal); N85.4 Malposition of uterus; N95.0 Postmenopausal bleeding; J45.909 Unspecified asthma, uncomplicated; M79.7 Fibromyalgia; K21.9 Gastro-esophageal reflux disease without esophagitis; E78.5 Hyperlipidemia, unspecified; M19.90 Unspecified osteoarthritis, unspecified site; G47.26 Circadian rhythm sleep disorder, shift work type; F98.8 Other specified behavioral and emotional disorders with onset usually occurring in childhood and adolescence; I83.90 Asymptomatic varicose veins of unspecified lower extremity; E16.2 Hypoglycemia, unspecified; R03.0 Elevated blood-pressure reading, without diagnosis of hypertension; F41.9 Anxiety disorder, unspecified; F32.9 Major depressive disorder, single episode, unspecified; E07.9 Disorder of thyroid, unspecified; G89.29 Other chronic pain; Z79.82 Long term (current) use of aspirin; Z79.890 Hormone replacement therapy; Z79.899 Other long term (current) drug therapy; Z88.8 Allergy status to other drugs, medicaments and biological substances; Z96.653 Presence of artificial knee joint, bilateral; Z87.891 Personal history of nicotine dependence
CPT/HCPCS: 88305; 58558; J2250; J1100; J2405; J2001; J1170; J0330; J2704

== ENCOUNTER 2018-10-22 07:30 | Inpatient (IN) | payer MEDICAID ==
[2018-11-22] MEDS ORDERED: LIDOCAINE 1% 20 ML VIAL (10MG/ML) FOR IV START INTRADERMA PRN (07:43)
[2018-11-22] MEDS ORDERED: MIDAZOLAM (PF) 2 MG/2 ML VIAL IV PRN (07:43)
[2018-11-22] MEDS ORDERED: fentaNYL (PF) 50 MCG/ML 2 ML AMP IV PRN (07:43)
[2018-11-22] MEDS ORDERED: DEXAMETHASONE SOD PHOSPHATE 10 MG/ML 1 ML VIAL IV ONE (07:43)
[2018-11-22] MEDS ORDERED: LACTATED RINGERS 1,000 ML IV SCH (07:45)
--- NOTE | 2018-11-24 19:35 | P.HPOB ---
History of Present Illness H&P Date: 11/24/18 Chief Complaint: Complex endometrial hyperplasia with atypia This is a 58-year-old female 6 para 3 who presents for total abdominal hysterectomy with bilateral salpingo-oophorectomy secondary to complex endometrial hyperplasia with atypia. She underwent a dilation and curettage in August 2018 which showed complex hyperplasia with atypia. She had previously showed simple endometrial hyperplasia in January 2017 and did take Provera for 3 months. Biopsy after that was within normal limits however she continued to have some postmenopausal bleeding and presented for dilation and curettage in August. In light of the continued bleeding and worsening hyperplasia, the decision is made to proceed with total abdominal hysterectomy with bilateral salpingo-oophorectomy. She was offered referral to [facility] oncology but declined. Obstetrical history: . History of 1 vaginal delivery and 2 deliveries. She also has a history of 3 miscarriages. Gynecologic history: She does have a history of herpes. No history of abnormal Pap smears. Social history: She is . 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 She has 1 current partner. Review of Systems Constitutional: Reports fatigue, Denies chills, Denies fever Eyes: denies blurred vision, denies pain Ears, nose, mouth and throat: Denies headache, Denies sore throat Cardiovascular: Denies chest pain, Denies shortness of breath Gastrointestinal: Reports abdominal pain (Mild cramping), Denies diarrhea, Denies nausea, Denies vomiting Genitourinary: Reports abnormal vaginal bleeding, Reports pelvic pain Menstruation: Reports postmenopausal Musculoskeletal: Reports low back pain, Reports myalgias Integumentary: Denies pruritus, Denies rash Neurological: Reports numbness (Hands, arms, both legs) Psychiatric: Reports anxiety, Reports difficulty concentrating, Reports irritability Endocrine: Reports fatigue, Reports weight change Past Medical History Past Medical History: Asthma, Cancer, Fibromyalgia, GERD/Reflux, Hyperlipidemia , Osteoarthritis (OA) Additional Past Medical History / Comment(s): 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 Shift work sleep disorder and ADD, varicose veins, hypoglycemia, borderline HTN and mild hyperlipidemia - no meds. Recent change in bowel habits. History of Any Multi-Drug Resistant Organisms: None Reported Past Surgical History: Breast Surgery, Section (2), Joint Replacement , Orthopedic Surgery Additional Past Surgical History / Comment(s): Bilateral knee replacements, BILATERAL KNEE ARTHOSCOPY, BREAST BX-NEG, CYST REMOVED LEFT BREAST, OVARIAN CYST REMOVED-exploratory laparotomy. TUMOR RIGHT KNEE EXTRACTED- CANCEROUS. D&C 2. Past Anesthesia/Blood Transfusion Reactions: No Reported Reaction Past Psychological History: Anxiety, Depression Smoking Status: Former smoker Past Alcohol Use History: Occasional Past Drug Use History: None Reported - Past Family History Mother Family Medical History: AFIB Father Family Medical History: Cancer Medications and Allergies Home Medications Medication Instructions Recorded Confirmed Type Citalopram Hydrobromide [CeleXA] 20 mg PO HS 12/07/14 11/21/18 History Dextroamphetamine/Amphetamine 30 mg PO Q72H 12/07/14 11/21/18 History [Adderall] Montelukast [Singulair] 10 mg PO DAILY PRN 12/07/14 11/21/18 History Zolpidem [Ambien] 5 mg PO HS PRN 12/07/14 11/21/18 History Albuterol Sulfate [Ventolin HFA] 2 puff INHALATION RT-Q6H PRN 12/09/14 11/21/18 History Cholecalciferol [Vitamin D3] 1,000 unit PO DAILY 12/09/14 11/21/18 History Omeprazole [PriLOSEC] 20 mg PO DAILY PRN 03/28/16 11/21/18 History Gabapentin [Neurontin] 300 mg PO DAILY 09/20/17 11/21/18 History Hydrocodone/Acetaminophen [Calvin 1 each PO Q6H PRN #40 tab 10/10/17 11/21/18 Rx 10-325] Docusate [Colace] 100 mg PO DAILY PRN 02/06/18 11/21/18 History Levothyroxine Sodium [Synthroid] 50 mcg PO DAILY 08/26/18 11/21/18 History Aspirin 325 mg PO DAILY 11/21/18 11/21/18 History Baclofen [Lioresal] 10 mg PO TID PRN 11/21/18 11/21/18 History Ibuprofen [Motrin] 600 mg PO Q8HR PRN 11/21/18 11/21/18 History Melatonin 5 mg PO HS 11/21/18 11/21/18 History Allergies Allergy/AdvReac Type Severity Reaction Status Date / Time scopolamine Allergy tachycardia Verified 11/21/18 11:40 Exam Osteopathic Statement: *. No significant issues noted on an osteopathic structural exam other than those noted in the History and Physical/Consult. HEENT: Within normal limits Heart: Regular rate and rhythm Lungs: Clear to auscultation bilaterally Abdomen: Soft, nontender Pelvic exam: Uterus is mildly tender, slightly enlarged, with no adnexal masses palpated. Mild bilateral tenderness is noted. Extremities: Negative Homans Assessment and Plan (1) Complex endometrial hyperplasia with atypia Status: Acute Code(s): N85.02 - ENDOMETRIAL INTRAEPITHELIAL NEOPLASIA [EIN] SNOMED Code(s): 951874460 Plan: Proceed with total abdominal hysterectomy with bilateral salpingo-oophorectomy. I have discussed the risks, benefits, and alternative therapies for the above- mentioned procedure and for both sedation/anesthesia as well as necessary blood products administration, if indicated, as they pertain to this patient. The patient has indicated her understanding and acceptance of the risks and procedures discussed.
[2018-11-25] MEDS ORDERED: ceFAZolin IN SWFI 2 GM/20 ML SYRINGE IVP ONE (05:00)
[2018-11-25] MEDS ORDERED: DEXAMETHASONE SOD PHOS (MDV) 100 MG/10 ML VIAL IVP ONE (06:40)
[2018-11-25] MEDS ORDERED: LACTATED RINGERS 1,000 ML IV ONE ×2 (06:40→08:29)
[2018-11-25] MEDS ORDERED: ONDANSETRON 4 MG/2 ML VIAL IVP ONE (06:40)
[2018-11-25] MEDS ORDERED: MIDAZOLAM 2 MG/2 ML VIAL IVP ONE (06:50)
[2018-11-25] MEDS ORDERED: NEOSTIGMINE 1 MG/ML 10 ML VIAL ONE (07:32)
[2018-11-25] MEDS ORDERED: SUCCINYLCHOLINE CHLORIDE 100 MG/5 ML SYR IV ONE (07:32)
[2018-11-25] MEDS ORDERED: PROPOFOL 10 MG/ML 20 ML VIAL IV ONE (07:32)
[2018-11-25] MEDS ORDERED: GLYCOPYRROLATE 0.2 MG/ML 2 ML VIAL ONE (07:32)
[2018-11-25] MEDS ORDERED: ROCURONIUM BROMIDE 10 MG/ML 10 ML VIAL IV ONE (07:32)
[2018-11-25] MEDS ORDERED: fentaNYL (PF) 50 MCG/ML 2 ML AMP ONE (07:32)
[2018-11-25] MEDS ORDERED: LIDOCAINE 1% INJ 10MG/ML (20 ML MDV) ONE (07:32)
[2018-11-25] MEDS ORDERED: HYDROmorphone (PF) 1 MG/ML ONE (07:32)
[2018-11-25] MEDS ORDERED: NALBUPHINE 10 MG/ML (1 ML AMP) IV PRN (08:17)
[2018-11-25] MEDS ORDERED: NALOXONE 0.4 MG/ML 1 ML VIAL IV PRN (08:17)
[2018-11-25] MEDS ORDERED: HYDROmorphone 0.5 MG/0.5 ML SYRINGE IVP PRN (08:17)
[2018-11-25] MEDS ORDERED: ONDANSETRON 4 MG/2 ML VIAL IVP PRN ×2 (08:17→10:25)
--- NOTE | 2018-11-25 09:04 | P.OP ---
Date of Procedure: 11/25/18 Preoperative Diagnosis: Complex endometrial hyperplasia with atypia Postmenopausal bleeding Postoperative Diagnosis: Complex endometrial hyperplasia with atypia Postmenopausal bleeding Procedure(s) Performed: Total abdominal hysterectomy with bilateral salpingo-oophorectomy Anesthesia: GETA, spinal (Duramorph) Surgeon: Fidelia Briceno Radar Systems Engineer #1: Princess Aguilar Estimated Blood Loss (ml): 300 Pathology: other (uterus with cervix, right tube and ovary, left ovary with portion of left fallopian tube) Condition: stable Disposition: floor Indications for Procedure: This is a 58-year-old female 6 para 3 who presents for total abdominal hysterectomy with bilateral salpingo-oophorectomy secondary to complex endometrial hyperplasia with atypia. She underwent a dilation and curettage in August 2018 which showed complex hyperplasia with atypia. She had previously showed simple endometrial hyperplasia in January 2017 and did take Provera for 3 months. Biopsy after that was within normal limits however she continued to have some postmenopausal bleeding and presented for dilation and curettage in August. In light of the continued bleeding and worsening hyperplasia, the decision is made to proceed with total abdominal hysterectomy with bilateral salpingo-oophorectomy. She was offered referral to [facility] oncology but declined. Operative Findings: Uterus was adherent to the bowel posteriorly and both ovaries were adherent to the posterior uterus and bowel. The left fallopian tube was not completely defined. The bladder was adherent anteriorly to the lower uterine segment. Description of Procedure: The patient is taken to the operating room where she is placed in the dorsal supine position. She is prepped and draped in the normal sterile fashion including Prieto catheter insertion and vaginal prep. A Pfannenstiel skin incision is made through the previous laparotomy scar with a scalpel. A second knife was used to carry the incision down to the underlying layer of fascia. The fascia was nicked in the midline with a scalpel and then extended laterally bilaterally with Durand scissors. The superior aspect of the fascial incision was grasped with Isaiah clamps, elevated off the underlying rectus muscle in the midline and then cut with Durand scissors. The inferior aspect of the fascial incision was grasped with Isaiah clamps, elevated off the underlying rectus muscle in the midline and then cut with Durand scissors. Next the peritoneum was identified and entered sharply with Durand scissors. It is extended superiorly and in fairly with Metzenbaum scissors with good visualization of underlying structures. Next the Yony retractor is placed in the bladder blade was inserted. The bowels were packed with a 3 yard laparotomy sponge. The uterine ovarian ligament on the left side is clamped with a Maria Del Carmen clamp, cut with Durand scissors, and then sutured with 0 Vicryl suture in Maria Del Carmen transfixion stitch. On the right side of the tube was identified and the mesosalpinx and uterine artery are clamped with a Maria Del Carmen clamp on the right side, cut with Durand scissors, and sutured with 0 Vicryl suture in a Maria Del Carmen transfixion stitch. The uterine arteries are then clamped with Maria Del Carmen clamp on either side. The vesicouterine peritoneum was sharply dissected away from the bladder with Metzenbaum scissors and pushed inferiorly. The uterine arteries are then cut with Duarnd scissors, and sutured with 0 Vicryl suture in Maria Del Carmen transfixion stitches. Next the cardinal ligaments were clamped on either side with Maria Del Carmen clamp, cut with Durand scissors, and sutured with 0 Vicryl suture in Maria Del Carmen transfixion stitches. The uterosacral ligaments are clamped on either side with Maria Del Carmen clamps, cut with Durand scissors, and sutured with 0 Vicryl suture in Maria Del Carmen transfixion stitches on either side. The edges of the vaginal cuff were clamped on either side with a Maria Del Carmen clamp, cut with Durand scissors, and sutured with 0 Vicryl suture in Maria Del Carmen transfixion stitches and held on either side. The vaginal mucosa was then cut just below the level of the cervix and the specimen is removed from the field. The edges of the vaginal cuff were held with Isaiah clamps. Next the previously held corners of each side of the vaginal cuff were then whipstitched along the connective tissue on either side and brought through the corner of the cuff and tied. Next the vaginal cuff was sutured with 0 Vicryl suture in a running locked fashion. Hemostasis was noted. Next the ovaries were bluntly dissected away from the pelvic wall and bowel with fingers. The infundibulopelvic ligament on the left was identified and clamped with a Maria Del Carmen clamp, cut with Durand scissors, and sutured with 0 Vicryl suture in interrupted [id number] stitch. There was a portion of the fallopian tube that was removed with the ovary, however the entire tube was not completely visible. The same procedure was carried out on the right side. Several interrupted stitches were placed posterior to the vaginal cuff for hemostasis. Copious irrigation was carried out with warm saline. Adequate hemostasis was noted. A piece of Gelfoam was placed along the posterior vaginal cuff due to the blunt dissection was carried out. Good hemostasis was noted. All sponges are removed from the abdomen. The peritoneum is then closed with 0 Vicryl suture in a running fashion. The muscle was then reapproximated with 0 Vicryl suture in interrupted fashion. The fascia layer is then closed with 0 PDS suture in a running fashion with the knots buried on either side and in the midline. Next the subcutaneous tissues closed with 2-0 Vicryl suture in a running fashion. The skin is closed with yvette. All sponge and needle counts are correct and the patient is taken to recovery room in stable condition.
[2018-11-25] MEDS: diphenhydrAMINE 50 MG/ML 1 ML VIAL IVP PRN ×2 (09:33→15:47)
[2018-11-25] MEDS ORDERED: ALBUTEROL NEBULIZED 2.5 MG/3 ML INHALATION PRN (10:25)
[2018-11-25] MEDS ORDERED: diphenhydrAMINE 50 MG/ML 1 ML VIAL IVP PRN (10:25)
[2018-11-25] MEDS ORDERED: ZOLPIDEM 5 MG TAB PO PRN (10:25)
[2018-11-25] MEDS ORDERED: MONTELUKAST 10 MG TAB PO PRN (10:25)
[2018-11-25] MEDS ORDERED: SIMETHICONE 80 MG CHEWABLE PO PRN (10:25)
[2018-11-25] MEDS ORDERED: METOCLOPRAMIDE 5 MG/ML 2 ML VIAL IVP PRN (10:25)
[2018-11-25] MEDS ORDERED: BACLOFEN 10 MG TAB PO PRN (10:25)
[2018-11-25] MEDS ORDERED: HYDROcodone/APAP 7.5-325MG 1 EACH TAB PO PRN (10:25)
[2018-11-25] MEDS ORDERED: KETOROLAC 30 MG/ML 1 ML VIAL IVP PRN (10:25)
[2018-11-25 10:37] VITALS: BMI 35.8
[2018-11-25] MEDS: LEVOTHYROXINE 50 MCG TAB PO SCH (11:13)
[2018-11-25] MEDS: LACTATED RINGERS 1,000 ML IV SCH (13:22)
[2018-11-25] MEDS: KETOROLAC 30 MG/ML 1 ML VIAL IVP PRN ×2 (14:58→21:01)
[2018-11-25] MEDS: SENNOSIDES-DOCUSATE SODIUM 1 EACH TAB PO SCH ×2 (15:53→21:00)
[2018-11-25] MEDS: GABAPENTIN 300 MG CAP PO SCH (15:53)
[2018-11-25] MEDS: CITALOPRAM HYDROBROMIDE 20 MG TAB PO SCH (21:00)
[2018-11-26] MEDS: KETOROLAC 30 MG/ML 1 ML VIAL IVP PRN (04:15)
[2018-11-26 06:58] LABS: Basophils % (A) 0 %; Eosinophils # (A) 0.1 k/uL (0-0.7); Eosinophils % (A) 0 %; HCT 37.6 % (34.0-46.0); HGB 12.1 gm/dL (11.4-16.0); Lymphocytes # (A) 1.2 k/uL (1.0-4.8); Lymphocytes % (A) 8 %; MCH 28.3 pg (25.0-35.0); MCHC 32.2 g/dL (31.0-37.0); MCV 87.9 fL (80.0-100.0); Mean Platelet Volume 7.1; Monocytes # (A) 0.8 k/uL (0-1.0); Monocytes % (A) 6 %; Neutrophils # (A) 12.4 k/uL (1.3-7.7); Neutrophils % (A) 85 %; Platelet Count 300 k/uL (150-450); RBC 4.28 m/uL (3.80-5.40); RDW 13.7 % (11.5-15.5); WBC 14.5 k/uL (3.8-10.6)
[2018-11-26] MEDS: LEVOTHYROXINE 50 MCG TAB PO SCH (07:41)
[2018-11-26] MEDS ORDERED: ACETAMINOPHEN TAB 325 MG TAB PO PRN (07:46)
[2018-11-26] MEDS: HYDROcodone/APAP 5-325MG 1 EACH TAB PO PRN ×3 (07:47→20:00)
[2018-11-26] MEDS: SENNOSIDES-DOCUSATE SODIUM 1 EACH TAB PO SCH ×2 (07:47→20:00)
--- NOTE | 2018-11-26 08:45 | P.PN ---
Subjective Progress Note Date: 11/26/18 Principal diagnosis: Status post APRIL/BSO postoperative day #1 Patient is doing well. She is passing flatus but no bowel movement yet. She has been ambulating. Her Prieto catheter was just removed this morning. She has not urinated yet. Her pain has been fairly well controlled but she is starting to get some soreness this morning. Objective - Vital Signs Vital signs: Vital Signs Temp 98.3 F 11/26/18 08:00 Pulse 58 L 11/26/18 08:00 Resp 15 11/26/18 08:00 BP 106/54 11/26/18 08:00 Pulse Ox 98 11/26/18 08:00 Intake & Output 11/25/18 11/26/18 11/26/18 18:59 06:59 18:59 Intake Total 1200 Output Total 1500 4300 Balance -300 -4300 Intake: IV 1200 Output: Urine 1200 4300 Uretheral (Prieto) 1150 Estimated Blood Loss 300 Other: Voiding Method Indwelling Catheter Indwelling Catheter - Constitutional General appearance: Present: no acute distress - Gastrointestinal Gastrointestinal Comment(s): Incision is clean dry and intact with yvette in place. General gastrointestinal: Present: normal bowel sounds, soft. Absent: tenderness - Musculoskeletal Musculoskeletal Comment(s): Negative Homans - Labs CBC & Chem 7: 11/26/18 06:23 Labs: Abnormal Lab Results - Last 24 Hours (Table) 11/26/18 Range/Units 06:23 WBC 14.5 H (3.8-10.6) k/uL Neutrophils # 12.4 H (1.3-7.7) k/uL Assessment and Plan Assessment: Status post APRIL/BSO postoperative day #1 (1) Complex endometrial hyperplasia with atypia Current Visit: No Status: Acute Code(s): N85.02 - ENDOMETRIAL INTRAEPITHELIAL NEOPLASIA [EIN] SNOMED Code(s): 043758416 Plan: Advised will switch to oral pain medications today. Encouraged ambulation. Diet is advanced to regular this morning.
--- NOTE | 2018-11-26 12:33 | P.PN ---
Progress Note - Text Date:11/26 Time:715 Patient is status post total abdominal hysterectomy. Patient seen this morning with VAS score of 4. c/o mild pruritus, no c/o nausea/vomiting, comfortable and doing well.
[2018-11-26] MEDS: IBUPROFEN 600 MG TAB PO PRN (16:19)
[2018-11-26] MEDS: PANTOPRAZOLE 40 MG TABLET PO PRN (16:27)
[2018-11-26] MEDS: LACTATED RINGERS 1,000 ML IV SCH ×3 (19:47→23:22)
[2018-11-26] MEDS: GABAPENTIN 300 MG CAP PO SCH (20:00)
[2018-11-26 23:18] VITALS: RESP 16
[2018-11-26] MEDS: CITALOPRAM HYDROBROMIDE 20 MG TAB PO SCH (23:21)
[2018-11-27] MEDS: IBUPROFEN 600 MG TAB PO PRN (00:41)
[2018-11-27] MEDS: HYDROcodone/APAP 5-325MG 1 EACH TAB PO PRN (06:34)
[2018-11-27] MEDS: LEVOTHYROXINE 50 MCG TAB PO SCH (06:35)
[2018-11-27] MEDS: PANTOPRAZOLE 40 MG TABLET PO PRN (06:41)
[2018-11-27] MEDS: SENNOSIDES-DOCUSATE SODIUM 1 EACH TAB PO SCH (07:56)
[2018-11-27] MEDS: CITALOPRAM HYDROBROMIDE 20 MG TAB PO SCH (07:56)
[2018-11-27 08:25] VITALS: BP 132/71; PULSE 77; TEMP 97.8
--- NOTE | 2018-11-27 08:50 | P.DS ---
Providers Date of admission: 11/25/18 05:31 Expected date of discharge: 11/27/18 Attending physician: Fidelia Briceno Primary care physician: Barrie Basurto - Discharge Diagnosis(es) (1) Complex endometrial hyperplasia with atypia Current Visit: No Status: Acute Hospital Course: This is a 58-year-old female who underwent a total abdominal hysterectomy with bilateral salpingo-oophorectomy on 11/25/2018. Postoperatively she has done well. She is passing flatus but no bowel movement. She is ambulating. Her pain is well-controlled with ibuprofen and Meridian. Bleeding has been minimal. She is urinating without difficulty. Vital signs are stable. Abdomen is soft with positive bowel sounds 4. Incision is clean dry and intact with gloria in place. Extremities show negative Homans. Impression is status post APRIL/BSO postoperative day #2. Plan is to discharge home today. Routine postoperative instructions are given. She will be given a prescription for Meridian 5/325 #42 and ibuprofen. She was counseled regarding opioid use and she did sign a opioid start talking form. MAPS was checked. She is advised follow-up in the office in 1 week for postoperative check. Gloria will be removed and Steri- Strips placed prior to discharge. She is advised to call the office if she has any further questions or concerns prior to her appointment time. Procedures: APRIL/BSO on 11/25/2018 Patient Condition at Discharge: Stable Plan - Discharge Summary Discharge Rx Participant: Yes New Discharge Prescriptions: New HYDROcodone/APAP 5-325MG [Meridian 5-325] 1 each PO Q4HR PRN #42 tab PRN Reason: Moderate Pain Ibuprofen [Motrin] 600 mg PO Q6HR PRN #60 tab PRN Reason: Mild Discomfort Continue Zolpidem [Ambien] 5 mg PO HS PRN PRN Reason: Insomnia Montelukast [Singulair] 10 mg PO DAILY PRN PRN Reason: Allergic Reaction Dextroamphetamine/Amphetamine [Adderall] 30 mg PO Q72H Citalopram Hydrobromide [CeleXA] 20 mg PO HS Cholecalciferol [Vitamin D3] 1,000 unit PO DAILY Albuterol Sulfate [Ventolin HFA] 2 puff INHALATION RT-Q6H PRN PRN Reason: Shortness Of Breath Omeprazole [PriLOSEC] 20 mg PO DAILY PRN PRN Reason: reflux Gabapentin [Neurontin] 300 mg PO DAILY Docusate [Colace] 100 mg PO DAILY PRN PRN Reason: Constipation Levothyroxine Sodium [Synthroid] 50 mcg PO DAILY Baclofen [Lioresal] 10 mg PO TID PRN PRN Reason: MUSCLE SPASMS Ibuprofen [Motrin] 600 mg PO Q8HR PRN PRN Reason: Pain Aspirin 325 mg PO DAILY Melatonin 5 mg PO HS Discontinued Hydrocodone/Acetaminophen [Meridian 10-325] 1 tab PO Q6H PRN PRN Reason: Pain Discharge Medication List Citalopram Hydrobromide [CeleXA] 20 mg PO HS 12/07/14 [History] Dextroamphetamine/Amphetamine [Adderall] 30 mg PO Q72H 12/07/14 [History] Montelukast [Singulair] 10 mg PO DAILY PRN 12/07/14 [History] Zolpidem [Ambien] 5 mg PO HS PRN 12/07/14 [History] Albuterol Sulfate [Ventolin HFA] 2 puff INHALATION RT-Q6H PRN 12/09/14 [History] Cholecalciferol [Vitamin D3] 1,000 unit PO DAILY 12/09/14 [History] Omeprazole [PriLOSEC] 20 mg PO DAILY PRN 03/28/16 [History] Gabapentin [Neurontin] 300 mg PO DAILY 09/20/17 [History] Docusate [Colace] 100 mg PO DAILY PRN 02/06/18 [History] Levothyroxine Sodium [Synthroid] 50 mcg PO DAILY 08/26/18 [History] Aspirin 325 mg PO DAILY 11/21/18 [History] Baclofen [Lioresal] 10 mg PO TID PRN 11/21/18 [History] Ibuprofen [Motrin] 600 mg PO Q8HR PRN 11/21/18 [History] Melatonin 5 mg PO HS 11/21/18 [History] HYDROcodone/APAP 5-325MG [Meridian 5-325] 1 each PO Q4HR PRN #42 tab 11/27/18 [Rx] Ibuprofen [Motrin] 600 mg PO Q6HR PRN #60 tab 11/27/18 [Rx] Follow up Appointment(s)/Referral(s): Fidelia Briceno DO [Doctor of Osteopathic Medicine] - 1 Week Activity/Diet/Wound Care/Special Instructions: Activity as tolerated. Diet as tolerated. May shower, but no tub baths for at least 1 week[address] No [address] until off of narcotic pain medication. No heavy lifting. Discharge Disposition: HOME SELF-CARE
[2018-11-27] MEDS: GABAPENTIN 300 MG CAP PO SCH (09:01)
== END 2018-11-27 11:38 | disposition home or self-care (01) | DRG 743 ==
LOC: 2ORMAIN 11-25 05:31 → 4FBP 11-25 09:14
PROVIDERS: ADMIT Obstetrics & Gynecology; ATTEND Obstetrics & Gynecology
PROC: 0UB70ZZ Excision of Bilateral Fallopian Tubes, Open Approach (ICD-10-PCS; 2018-11-25)
PROC: 0UT20ZZ Resection of Bilateral Ovaries, Open Approach (ICD-10-PCS; 2018-11-25)
PROC: 0UT90ZZ Resection of Uterus, Open Approach (ICD-10-PCS; principal; 2018-11-25 07:30)
DX: N85.02 Endometrial intraepithelial neoplasia [EIN] (principal); E78.5 Hyperlipidemia, unspecified; F32.9 Major depressive disorder, single episode, unspecified; F41.9 Anxiety disorder, unspecified; J45.909 Unspecified asthma, uncomplicated; K21.9 Gastro-esophageal reflux disease without esophagitis; M79.7 Fibromyalgia; G47.9 Sleep disorder, unspecified; I83.90 Asymptomatic varicose veins of unspecified lower extremity; M19.90 Unspecified osteoarthritis, unspecified site; R03.0 Elevated blood-pressure reading, without diagnosis of hypertension; Z79.82 Long term (current) use of aspirin; Z79.890 Hormone replacement therapy; Z79.899 Other long term (current) drug therapy; Z87.891 Personal history of nicotine dependence; Z96.653 Presence of artificial knee joint, bilateral; Z85.89 Personal history of malignant neoplasm of other organs and systems; Z88.8 Allergy status to other drugs, medicaments and biological substances; Z80.9 Family history of malignant neoplasm, unspecified; Z82.49 Family history of ischemic heart disease and other diseases of the circulatory system
CPT/HCPCS: 85025; 86850; 86900; 86901; 88309; 88341; 88342

== ENCOUNTER → 2018-11-18 | Outpatient (CLI) | payer MEDICAID ==
[2018-11-18 17:56] LABS: Basophils % (A) 1 %; Eosinophils # (A) 0.2 k/uL (0-0.7); Eosinophils % (A) 2 %; HCT 43.4 % (34.0-46.0); HGB 14.4 gm/dL (11.4-16.0); Lymphocytes # (A) 1.8 k/uL (1.0-4.8); Lymphocytes % (A) 20 %; MCH 28.4 pg (25.0-35.0); MCHC 33.1 g/dL (31.0-37.0); MCV 85.8 fL (80.0-100.0); Mean Platelet Volume 7.7; Monocytes # (A) 0.6 k/uL (0-1.0); Monocytes % (A) 7 %; Neutrophils # (A) 6.3 k/uL (1.3-7.7); Neutrophils % (A) 70 %; Platelet Count 303 k/uL (150-450); RBC 5.06 m/uL (3.80-5.40); RDW 13.7 % (11.5-15.5)
[2018-11-18 18:01] LABS: Anion Gap 9 mmol/L; Blood Urea Nitrogen 18 mg/dL (7-17); Calcium 9.9 mg/dL (8.4-10.2); Carbon Dioxide 29 mmol/L (22-30); Chloride 103 mmol/L (98-107); Glucose 153 mg/dL (74-99); Potassium 4.7 mmol/L (3.5-5.1); Sodium 141 mmol/L (137-145)
== END ==
LOC: LABPAT 17:05
PROVIDERS: ATTEND Obstetrics & Gynecology
DX: Z01.812 Encounter for preprocedural laboratory examination (principal)
CPT/HCPCS: 36415; 80048; 85025; 86850; 86900; 86901

== ENCOUNTER → 2018-12-25 | Outpatient (CLI) | payer MEDICAID ==
--- NOTE | 2018-12-25 12:13 | CT ---
EXAMINATION TYPE: CT ChestAbdPelvis wo/w con DATE OF EXAM: 12/25/2018 COMPARISON: NONE HISTORY: Malignant neoplasm of ovary CT DLP: 2628.3 mGycm. Automated Exposure Control for Dose Reduction was Utilized. CONTRAST: CT scan of the thorax, abdomen and pelvis is performed without and with IV Contrast, patient injected with 100 mL of Isovue 300. FINDINGS: LUNGS: There is a groundglass pulmonary nodule with a central solid punctate component on series 4 im age 9 measuring 6 mm. No other pulmonary nodules are seen or pulmonary masses. MEDIASTINUM: There are no greater than 1 cm hilar or mediastinal lymph nodes. No pericardial effusi on is seen. LIVER/GB: No appreciable mass is seen. There is very mild decreased attenuation of the hepatic parenc hyma in comparison to that of the spleen suggesting early mild degree hepatic steatosis although prec ontrast attenuation does not confirm this finding. No focal mass is seen. No intrahepatic biliary katie brandy dilatation. No cholelithiasis. PANCREAS: No significant abnormality is seen. SPLEEN: No significant abnormality is seen. No clinical megaly. ADRENALS: No significant abnormality is seen. KIDNEYS: Kidneys enhance symmetrically without hydronephrosis. BOWEL: No dilated large or small bowel. GENITAL ORGANS: There is surgical absence of the uterus. The ovaries are presumably absent in this pa tient with history of ovarian carcinoma. There is very subtle enhancement at the postsurgical site in the uterine surgical bed without discrete mass likely representing postsurgical granulation tissue a s such as on series 3 image 106 in comparison to series 4 image 109 with Hounsfield unit increase of approximately 30. Some linear fat stranding on image 101 of series 9 extending to the rectus musculat ure to the left of the urinary bladder is also likely postsurgical in nature. LYMPH NODES: No greater than 1cm abdominal or pelvic lymph nodes are appreciated. OSSEOUS STRUCTURES: Mild multilevel degenerative change of the spine is present. IMPRESSION: 1. Solitary right apical predominantly groundglass pulmonary nodule measuring 6 mm. Given the groundg lass density short-term follow-up in [address] of the chest is recommended as this could relat e to pneumonitis of infectious/inflammatory etiology or solitary pulmonary metastatic focus. 2. Mild enhancement along the surgical uterine 10 likely relates to development of granulation tissue as no discrete peritoneal mass nor local adenopathy is seen. No solid visceral metastasis or suspici ous adenopathy in the abdomen or pelvis.
== END ==
LOC: RADCTMAIN 09:44
PROVIDERS: ATTEND Obstetrics & Gynecology
DX: R91.1 Solitary pulmonary nodule (principal); C56.9 Malignant neoplasm of unspecified ovary; C54.1 Malignant neoplasm of endometrium
CPT/HCPCS: 71270; 74178; Q9967

== ENCOUNTER → 2019-01-31 | Outpatient (CLI) | payer MEDICAID ==
--- NOTE | 2019-02-03 09:44 | MM ---
Reason for exam: screening (asymptomatic). Last mammogram was performed 1 year and 10 months ago. History: Patient is postmenopausal, has history of endometrial cancer at age 58, and has history of other cancer at age 23. Family history of breast cancer in grandmother at age 90. Excisional biopsy of the left breast, 1979. Took hormonal contraceptives for 3 months. Took estrogen for 1 month. Physical Findings: A clinical breast exam by your physician is recommended on an annual basis and results should be correlated with mammographic findings. MG 3D Screening Mammo W/Cad Bilateral CC and MLO view(s) were taken. Prior study comparison: April 11, 2017, bilateral MG 3d screening mammo w/cad. September 04, 2015, bilateral MG 3d screening mammo w/cad. The breast tissue is heterogeneously dense. This may lower the sensitivity of mammography. There is no discrete abnormality. No significant changes when compared with prior studies. ASSESSMENT: Negative, BI-RAD 1 RECOMMENDATION: Routine screening mammogram of both breasts in 1 year.
== END ==
LOC: RADMAMWWP 16:01
PROVIDERS: ATTEND Obstetrics & Gynecology
DX: Z12.31 Encounter for screening mammogram for malignant neoplasm of breast (principal)
CPT/HCPCS: 77063; 77067

== ENCOUNTER → 2019-02-26 | Outpatient (CLI) | payer MEDICAID ==
--- NOTE | 2019-02-26 15:43 | XR ---
EXAMINATION TYPE: XR chest 2V DATE OF EXAM: 02/26/2019 COMPARISON: NONE HISTORY: Shortness of breath TECHNIQUE: Frontal and lateral views of the chest are obtained. FINDINGS: Scattered senescent parenchymal changes noted. Hyperinflation compatible with COPD. No evidence for infiltrate. No evidence for atelectasis. Heart size is stable. Mediastinal structures are stable and grossly unremarkable. No evidence for hilar prominence. Degenerative changes dorsal spine. IMPRESSION: 1. No evidence for acute pulmonary disease.
== END | disposition home or self-care (01) ==
LOC: LABWHC1 14:16
PROVIDERS: ATTEND Obstetrics & Gynecology
DX: C54.1 Malignant neoplasm of endometrium (principal)
CPT/HCPCS: 36415; 71046; 83520; 86304; 86336

== ENCOUNTER → 2019-03-14 | Outpatient (CLI) | payer MEDICAID ==
--- NOTE | 2019-03-14 16:01 | CT ---
EXAMINATION TYPE: CT ChestAbdPelvis w con DATE OF EXAM: 03/14/2019 COMPARISON: 12/25/2018 HISTORY: 58 year-old female follow-up uterine cancer TECHNIQUE: Contiguous axial scanning of the chest, abdomen, and pelvis performed with IV Contrast, pa tient injected with 100 mL of Isovue 300. Delayed images through the kidneys were obtained. Coronal/s agittal reconstructions performed. CT DLP: 1591.4 mGycm Automated exposure control for dose reduction was used. FINDINGS: Chest: Heart normal size without pericardial effusion. Aorta normal caliber with conventional branching anatomy. Scattered nonenlarged mediastinal lymph nod es are unchanged. No thoracic lymphadenopathy by CT size criteria. Stable 6 mm right apical groundglass nodule. Trace biapical pleural parenchymal scarring. No consolid ation or pleural effusion. ABDOMEN: No focal liver lesion or biliary ductal dilatation. Portal venous system is patent. Gallbladder, adrenal glands, left kidney, spleen, and pancreas appear within normal limits. Tiny 8 mm subcentimeter hypodensity posterior mid to lower pole right kidney too small fractured CT c haracterization, unchanged, likely tiny cyst. No dilated small bowel, free fluid, or free air. No mesenteric or retroperitoneal lymphadenopathy. Normal appendix. Moderate stool burden. No pericolonic inflammatory change. Pelvis: Bladder urine distended. Uterus surgically absent. Phlebolith in the left side of the pelvis. No new or increasing peritoneal nodularity or evident mass. No abnormal fluid collection in the pelvis or pe lvic lymphadenopathy. Neither ovaries are visualized. Bones: Mild degenerative spurring at the hips. Facet arthropathy lower lumbar spine. Endplate spondylosis lo wer thoracic spine with associated mild to moderate degenerative disc disease. No osseous destructive process. IMPRESSION: 1. STABLE SOLITARY 6 MM GROUNDGLASS NODULE RIGHT APEX. [address] FOLLOW-UP CT RECOMMENDED. IF THE NODUL E REMAINS STABLE AT THAT TIME (AFTER A TOTAL OF ONE YEAR), CT EVERY 2 YEARS CAN BE PERFORMED FOR SURV EILLANCE FOR A TOTAL OF 5 YEARS. 2. STATUS POST HYSTERECTOMY. NO EVIDENCE FOR LOCOREGIONAL RECURRENCE OR METASTATIC DISEASE.
== END | disposition home or self-care (01) ==
LOC: RADCTMAIN 12:25
PROVIDERS: ATTEND Obstetrics & Gynecology
DX: Z08 Encounter for follow-up examination after completed treatment for malignant neoplasm (principal); R91.1 Solitary pulmonary nodule; Z90.710 Acquired absence of both cervix and uterus; Z85.42 Personal history of malignant neoplasm of other parts of uterus
CPT/HCPCS: 71260; 74177; Q9967

== ENCOUNTER → 2019-06-24 | Outpatient (CLI) | payer MEDICAID ==
--- NOTE | 2019-06-24 13:22 | XR ---
EXAMINATION TYPE: XR thoracic spine 2V DATE OF EXAM: 06/24/2019 CLINICAL HISTORY: Chronic thoracic back pain with no known injury. TECHNIQUE: Frontal, lateral, and swimmer's view of thoracic spine are obtained. COMPARISON: None. FINDINGS: Thoracic spine show satisfactory alignment without evidence of acute fracture or dislocatio n. Vertebral body heights are preserved. There is a mild levoscoliosis of the thoracic spine. There is an exaggerated thoracic kyphosis. Intervertebral disc space narrowing and endplate sclerosis is mo st prominent within the mid thoracic spine. Visualized ribs are unremarkable. IMPRESSION: No acute fracture or malalignment is seen in the thoracic spine. Moderate multilevel deg enerative disc disease of the thoracic spine.
--- NOTE | 2019-06-24 13:23 | XR ---
EXAMINATION TYPE: XR lumbosacral spine min 4V DATE OF EXAM: 06/24/2019 CLINICAL HISTORY: Chronic back pain with no stated injury TECHNIQUE: Frontal, lateral, and oblique images of the lumbar spine are obtained. COMPARISON: 03/10/2010 FINDINGS: There are 5 lumbar type vertebral bodies identified. The lumbar spine shows satisfactory alignment without evidence of acute fracture or dislocation. Vertebral body heights and disk space he ights are within normal limits. The oblique images appear within normal limits. Mild facet arthropa thy is seen in L4-L5 and L5-S1. Small anterior osteophytes throughout the lumbar spine. The overlying soft tissue appears unremarkable. IMPRESSION: No acute fracture or malalignment is seen in the lumbar spine. Mild multilevel degenerat navjot disc disease of the lumbar spine.
--- NOTE | 2019-06-24 14:01 | XR ---
EXAMINATION TYPE: XR cervical spine comp DATE OF EXAM: 06/24/2019 TECHNIQUE: Frontal, lateral, oblique, swimmers, and open mouth view of the cervical spine are obtaine d. HISTORY: M54.2 cervicalgia M54.6 T spine pain M54.5 chronic neck pain with no stated injury. COMPARISON: 03/10/2010 FINDINGS: The cervical spine is visualized in its entirety from C1 thru the top of T1 level, it is s atisfactory in alignment without evidence of acute fracture or dislocation. The pre-vertebral soft t issue appears within normal limits. Small anterior osteophytes are noted. The C1-C2 articulation is within normal limits on the open mouth view. The oblique images demonstrate uncovertebral hypertroph y and facet arthropathy that is minimal C2-C3, C3-C4, C4-C5 and C5-C6 bilaterally without significant neural foraminal narrowing on x-ray. IMPRESSION: No acute fracture or malalignment is seen in the cervical spine. Mild multilevel degener ative disc disease of the cervical spine.
== END | disposition home or self-care (01) ==
LOC: RADXRMAIN 12:03
PROVIDERS: ATTEND Family Medicine
DX: M51.36 Other intervertebral disc degeneration, lumbar region (principal); M51.34 Other intervertebral disc degeneration, thoracic region; M50.30 Other cervical disc degeneration, unspecified cervical region
CPT/HCPCS: 72050; 72070; 72110

== ENCOUNTER → 2019-08-08 | Outpatient (CLI) | payer MEDICAID ==
--- NOTE | 2019-08-08 13:52 | MR ---
EXAMINATION TYPE: MR cervical spine wo/w con DATE OF EXAM: 08/08/2019 COMPARISON: Cervical spine x-rays dated 06/24/2019 HISTORY: cervicalgia TECHNIQUE: Multiplanar, multisequence images of the cervical spine were acquired utilizing 10 mL intravenous Luis avist gadolinium contrast. Diffusion weighted imaging was performed. FINDINGS: Cervical spine vertebral bodies maintain normal vertebral body heights. Minimal retrolisthe sis of C5 on C6 is seen. Remainder of the cervical spine vertebral bodies maintain normal alignment. Multilevel disc desiccation is seen. Bone marrow signal is within normal limits. Visualized portions of the posterior fossa are unremarkable. Postcontrast images demonstrate no abnormal enhancement of t he cervical spine. Spinal cord signal is within normal limits. No abnormal prevertebral soft tissue s welling. C2-C3: Disc desiccation is seen without spinal canal stenosis nor neural foraminal narrowing. C3-C4: There is a broad-based disc bulge and uncovertebral hypertrophy as well as a small posterior d isc osteophyte complex creating mild spinal canal stenosis and moderate bilateral neural foraminal na rrowing. Ligamentum flavum buckling is seen. C4-C5: Uncovertebral hypertrophy and facet arthropathy creates severe right and moderate left neural foraminal narrowing. Broad-based disc bulge contributes to mild spinal canal stenosis. C5-C6: There is moderate spinal canal stenosis secondary to a central disc herniation, ligamentum fla vum buckling, facet arthropathy, and uncovertebral hypertrophy. There is also moderate bilateral neur al foraminal narrowing. C6-C7: Broad-based disc bulge and posterior disc osteophyte complex are seen with uncovertebral hyper trophy and facet arthropathy creating mild spinal canal stenosis and moderate left neural foraminal n arrowing mild right neural foraminal narrowing. C7-T1: There is a central disc osteophyte complex and uncovertebral hypertrophy creating moderate radha ateral neural foraminal narrowing without spinal canal stenosis. IMPRESSION: 1. Moderate spinal canal stenosis at C5-C6 secondary to a central disc herniation. Ligament of flavum buckling, facet arthropathy and uncovertebral hypertrophy also contribute to this finding and creati ng moderate bilateral neural foraminal narrowing. 2. Advanced degenerative disc disease of the cervical spine contributing to mild spinal canal stenosi s at C3-C4, C4-C5, and C6-C7 as well as variable degrees of neural foraminal narrowing as detailed ab ove. 3. Minimal retrolisthesis of C5 on C6 is likely on a degenerative basis.
== END | disposition home or self-care (01) ==
LOC: RADMRIMAIN 10:37
PROVIDERS: ATTEND Family Medicine
DX: M48.02 Spinal stenosis, cervical region (principal); M50.222 Other cervical disc displacement at C5-C6 level; M50.321 Other cervical disc degeneration at C4-C5 level
CPT/HCPCS: 72156; A9585

== ENCOUNTER 2019-10-04 01:22 | Emergency (ER) | payer MEDICAID ==
[2019-10-04] MEDS ORDERED: SODIUM CHLORIDE 0.9% 1,000 ML IV STA (01:41)
--- NOTE | 2019-10-04 01:50 | ED ---
Neuro HPI - General Chief Complaint: Neuro Symptoms/Deficit Stated Complaint: Left sided numbness Time Seen by Provider: 10/04/19 01:36 Source: patient Mode of arrival: ambulatory Limitations: no limitations - History of Present Illness Is the patient presenting with stroke symptoms?: No Initial Comments: Aurora is a 58-year-old female with past medical history of cervical radiculopathy with paresthesias of the left arm who presents the emergency department today for evaluation of worsening symptoms. Patient reports that she reports around midnight and felt that her neck was hurting worse and that her tingling and numbness in her left arm was worsen usual. She states she felt like her arm was weak and then she felt like she had trouble talking. Patient states that she was able to drink water and swallow without difficulty. She feels that her speech improved after that however she became anxious about the symptoms and decided to come the ER for evaluation. Patient reports feeling like entire left side of her body is weird. She doesn't report any weakness she has a normal gait and normal strength but just states that something feels off. - Related Data Home Medications: Home Medications Medication Instructions Recorded Confirmed Citalopram Hydrobromide [CeleXA] 20 mg PO HS 12/07/14 11/25/18 Dextroamphetamine/Amphetamine 30 mg PO Q72H 12/07/14 11/25/18 [Adderall] Montelukast [Singulair] 10 mg PO DAILY PRN 12/07/14 11/25/18 Zolpidem [Ambien] 5 mg PO HS PRN 12/07/14 11/25/18 Albuterol Sulfate [Ventolin HFA] 2 puff INHALATION RT-Q6H PRN 12/09/14 11/25/18 Cholecalciferol [Vitamin D3 (25 1,000 unit PO DAILY 12/09/14 11/25/18 Mcg = 1000 Iu)] Omeprazole [PriLOSEC] 20 mg PO DAILY PRN 03/28/16 11/25/18 Gabapentin [Neurontin] 300 mg PO DAILY 09/20/17 11/25/18 Docusate [Colace] 100 mg PO DAILY PRN 02/06/18 11/25/18 Levothyroxine Sodium [Synthroid] 50 mcg PO DAILY 08/26/18 11/25/18 Aspirin 325 mg PO DAILY 11/21/18 11/25/18 Baclofen [Lioresal] 10 mg PO TID PRN 11/21/18 11/25/18 Ibuprofen [Motrin] 600 mg PO Q8HR PRN 11/21/18 11/25/18 Melatonin 5 mg PO HS 11/21/18 11/25/18 Previous Rx's Medication Instructions Recorded HYDROcodone/APAP 5-325MG [[place] 1 each PO Q4HR PRN #42 tab 11/27/18 5-325] Ibuprofen [Motrin] 600 mg PO Q6HR PRN #60 tab 11/27/18 Allergies/Adverse Reactions: Allergies Allergy/AdvReac Type Severity Reaction Status Date / Time scopolamine Allergy tachycardia Verified 10/04/19 01:32 Review of Systems ROS Statement: Those systems with pertinent positive or pertinent negative responses have been documented in the HPI. ROS Other: All systems not noted in ROS Statement are negative. General Exam - General Exam Comments Initial Comments: Physical Exam GENERAL: Patient is well-developed and well-nourished. Patient is nontoxic and well- hydrated and is in no distress. HENT: Normocephalic, Atraumatic. EYES: PERRL, EOMI PULMONARY: Unlabored respirations. No audible rales rhonchi or wheezing was noted. CARDIOVASCULAR: There is a regular rate and rhythm without any murmurs gallops or rubs. ABDOMEN: Soft and nontender with normal bowel sounds. SKIN: Skin is clear with no lesions or rashes and otherwise unremarkable. : Deferred NEUROLOGIC: Patient is alert and oriented x3. 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 No lower extremity swelling or edema. No calf tenderness. PSYCHIATRIC: Normal psychiatric evaluation. Limitations: no limitations Stroke MDM - Lab Data Result diagrams: 10/04/19 01:40 10/04/19 01:40 Lab Results 10/04/19 10/04/19 10/04/19 Range/Units 01:40 01:40 01:40 WBC 6.8 (3.8-10.6) k/uL RBC 5.23 (3.80-5.40) m/uL Hgb 14.3 (11.4-16.0) gm/dL Hct 43.8 (34.0-46.0) % MCV 83.7 (80.0-100.0) fL MCH 27.3 (25.0-35.0) pg MCHC 32.6 (31.0-37.0) g/dL RDW 13.7 (11.5-15.5) % Plt Count 296 (150-450) k/uL Neutrophils % 53 % Lymphocytes % 35 % Monocytes % 6 % Eosinophils % 3 % Basophils % 1 % Neutrophils # 3.6 (1.3-7.7) k/uL Lymphocytes # 2.4 (1.0-4.8) k/uL Monocytes # 0.4 (0-1.0) k/uL Eosinophils # 0.2 (0-0.7) k/uL Basophils # 0.0 (0-0.2) k/uL PT 9.7 (9.0-12.0) sec INR 0.9 (<1.2) APTT 27.2 (22.0-30.0) sec Sodium 139 (137-145) mmol/L Potassium 4.6 (3.5-5.1) mmol/L Chloride 106 (98-107) mmol/L Carbon Dioxide 28 (22-30) mmol/L Anion Gap 5 mmol/L BUN 17 (7-17) mg/dL Creatinine 0.80 (0.52-1.04) mg/dL Est GFR (CKD-EPI)AfAm >90 (>60 ml/min/1.73 sqM) Est GFR (CKD-EPI)NonAf 82 (>60 ml/min/1.73 sqM) Glucose 113 H (74-99) mg/dL Calcium 9.7 (8.4-10.2) mg/dL Total Bilirubin 0.5 (0.2-1.3) mg/dL AST 24 (14-36) U/L ALT 21 (4-34) U/L Alkaline Phosphatase 63 (38-126) U/L Troponin I (0.000-0.034) ng/mL Total Protein 7.4 (6.3-8.2) g/dL Albumin 4.2 (3.5-5.0) g/dL 10/04/19 Range/Units 01:40 WBC (3.8-10.6) k/uL RBC (3.80-5.40) m/uL Hgb (11.4-16.0) gm/dL Hct (34.0-46.0) % MCV (80.0-100.0) fL MCH (25.0-35.0) pg MCHC (31.0-37.0) g/dL RDW (11.5-15.5) % Plt Count (150-450) k/uL Neutrophils % % Lymphocytes % % Monocytes % % Eosinophils % % Basophils % % Neutrophils # (1.3-7.7) k/uL Lymphocytes # (1.0-4.8) k/uL Monocytes # (0-1.0) k/uL Eosinophils # (0-0.7) k/uL Basophils # (0-0.2) k/uL PT (9.0-12.0) sec INR (<1.2) APTT (22.0-30.0) sec Sodium (137-145) mmol/L Potassium (3.5-5.1) mmol/L Chloride (98-107) mmol/L Carbon Dioxide (22-30) mmol/L Anion Gap mmol/L BUN (7-17) mg/dL Creatinine (0.52-1.04) mg/dL Est GFR (CKD-EPI)AfAm (>60 ml/min/1.73 sqM) Est GFR (CKD-EPI)NonAf (>60 ml/min/1.73 sqM) Glucose (74-99) mg/dL Calcium (8.4-10.2) mg/dL Total Bilirubin (0.2-1.3) mg/dL AST (14-36) U/L ALT (4-34) U/L Alkaline Phosphatase (38-126) U/L Troponin I <0.012 (0.000-0.034) ng/mL Total Protein (6.3-8.2) g/dL Albumin (3.5-5.0) g/dL - NIH Stroke Scale 1a. Level of Consciousness: (0) alert 1b. LOC Questions: (0) answers correctly 1c. LOC Commands: (0) performs tasks correctly 2. Best Gaze: (0) normal 3. Visual: (0) no visual loss 4. Facial Palsy: (0) normal symmetrical movement 5a. Motor Arm Left: (0) no drift 5b. Motor Arm Right: (0) no drift 6a. Motor Leg Left: (0) no drift 6b. Motor Leg Right: (0) no drift 7. Limb Ataxia: (0) absent 8. Sensory: (0) normal 9. Best Language: (0) no aphasia 10. Dysarthria: (0) normal 11. Extinction/Inattention: (0) no abnormality - Thrombolytic Inclusion/Exclusion Thrombolytic Contraindications: Rapidly Improving s/s - Medical Decision Making The patient was seen and evaluated upon arrival to the emergency department, because stroke was activated due to the patient's complaint of having had a brief episode of trouble speaking though she had no difficulty swallowing no facial droop and this occurred and resolved 2 hours ago. On initial evaluation patient has a NIH of 0. No objective findings only subjective pierced the left upper extremity which are unchanged from previous. care was discussed with Dr. Briggs - interventional neurology for Sheela Chau and Collin. He recommends no TPA no intervention considering resolution of symptoms. As and imaging were unremarkable patient was reevaluated and advised of the nega tive imaging. At this time patient's comfortable with the plan for discharge home and outpatient follow-up with her established neurologist. She feels this is likely just an exacerbation of her cervical radiculopathy causing the acute on chronic paresthesias in her left arm. Patient remains awake alert oriented normal speech no facial droop able to speak and swallow without difficulty NIH remains 0. At this time I do feel comfortable discharging patient home with outpatient follow-up. - EKG Data -: EKG Interpreted by Me EKG shows normal: sinus rhythm Rate: normal EKG was obtained as part of stroke workup EKG obtained at 1:40 AM, rate of 71 rhythm is sinus tach normal axis are normal intervals, WI 150, Carafate, QTC is 417 elevations or depressions no evidence of acute ischemia or infarction or arrhythmia 10/04/19 07:45 Past Medical History Past Medical History: Asthma, Cancer, Fibromyalgia, GERD/Reflux, Hyperlipidemia, Osteoarthritis (OA) Additional Past Medical History / Comment(s): 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 Shift work sleep disorder and ADD, varicose veins, hypoglycemia, borderline HTN and mild hyperlipidemia - no meds. Recent change in bowel habits. History of Any Multi-Drug Resistant Organisms: None Reported Past Surgical History: Breast Surgery, Section, Joint Replacement, Orthopedic Surgery Additional Past Surgical History / Comment(s): Bilateral knee replacements, BILATERAL KNEE ARTHOSCOPY, BREAST BX-NEG, CYST REMOVED LEFT BREAST, OVARIAN CYST REMOVED NOT LAPAROSCOPIC. TUMOR RIGHT KNEE EXTRACTED- CANCEROUS. D&C. Past Anesthesia/Blood Transfusion Reactions: No Reported Reaction Past Psychological History: ADD/ADHD, Depression Smoking Status: Former smoker Past Alcohol Use History: Rare Past Drug Use History: None Reported - Past Family History Mother Family Medical History: AFIB Father Family Medical History: Cancer Course Vital Signs 10/04/19 10/04/19 10/04/19 01:26 01:48 01:54 Temperature 97.9 F Pulse Rate 71 70 82 Respiratory 20 16 16 Rate Blood Pressure 162/85 135/65 151/89 O2 Sat by Pulse 100 99 99 Oximetry 10/04/19 10/04/19 10/04/19 02:00 02:10 02:20 Temperature Pulse Rate 70 64 61 Respiratory 16 20 16 Rate Blood Pressure 152/76 145/67 131/76 O2 Sat by Pulse 98 100 Oximetry 10/04/19 10/04/19 10/04/19 02:30 02:40 02:50 Temperature Pulse Rate 60 65 70 Respiratory 20 18 20 Rate Blood Pressure 144/69 128/77 133/70 O2 Sat by Pulse 100 100 100 Oximetry 10/04/19 10/04/19 10/04/19 03:00 03:10 03:20 Temperature Pulse Rate 71 60 62 Respiratory 20 18 18 Rate Blood Pressure 136/66 121/74 119/72 O2 Sat by Pulse 97 100 99 Oximetry 10/04/19 10/04/19 10/04/19 03:30 03:40 03:50 Temperature Pulse Rate 61 64 66 Respiratory 20 18 18 Rate Blood Pressure 129/74 129/71 130/78 O2 Sat by Pulse 99 97 98 Oximetry 10/04/19 04:00 Temperature 97.7 F Pulse Rate 70 Respiratory 18 Rate Blood Pressure 129/79 O2 Sat by Pulse 99 Oximetry Disposition Clinical Impression: Paresthesia of left arm Disposition: HOME SELF-CARE Condition: Stable Instructions (If sedation given, give patient instructions): Paresthesia (ED) Is patient prescribed a controlled substance at d/c from ED?: No Referrals: Barrie Basurto DO [Primary Care Provider] - 1-2 days Jake Parks MD [Medical Doctor] - 1-2 days
[2019-10-04 01:59] LABS: Basophils % (A) 1 %; Eosinophils # (A) 0.2 k/uL (0-0.7); Eosinophils % (A) 3 %; HCT 43.8 % (34.0-46.0); HGB 14.3 gm/dL (11.4-16.0); Lymphocytes # (A) 2.4 k/uL (1.0-4.8); Lymphocytes % (A) 35 %; MCH 27.3 pg (25.0-35.0); MCHC 32.6 g/dL (31.0-37.0); MCV 83.7 fL (80.0-100.0); Mean Platelet Volume 7.6; Monocytes # (A) 0.4 k/uL (0-1.0); Monocytes % (A) 6 %; Neutrophils # (A) 3.6 k/uL (1.3-7.7); Neutrophils % (A) 53 %; Platelet Count 296 k/uL (150-450); RBC 5.23 m/uL (3.80-5.40); RDW 13.7 % (11.5-15.5); WBC 6.8 k/uL (3.8-10.6)
--- NOTE | 2019-10-04 02:03 | XR ---
EXAMINATION TYPE: XR chest 1V DATE OF EXAM: 10/04/2019 COMPARISON: November 01, 2012 HISTORY: Asthma TECHNIQUE: Single view FINDINGS: Heart and mediastinum are normal. Lungs are clear. Diaphragm is normal. Bony thorax is inta ct. Pulmonary vascularity is normal. IMPRESSION: Normal chest. No change.
--- NOTE | 2019-10-04 02:06 | CT ---
EXAMINATION TYPE: CT brain wo con for TPA DATE OF EXAM: 10/04/2019 COMPARISON: None HISTORY: stroke CT DLP: 1094.4 mGycm Automated exposure control for dose reduction was used. Multiple axial sections were obtained of the brain without contrast. Ventricles and sulci appear normal. There is no mass effect nor midline shift. There is no sign of in tracranial hemorrhage. The calvarium is intact. Impression negative head CT scan.
[2019-10-04 02:07] LABS: INR 0.9 (<1.2); Partial Thromboplastin Time 27.2 sec (22.0-30.0); Prothrombin Time 9.7 sec (9.0-12.0)
[2019-10-04 02:09] LABS: ALT 21 U/L (4-34); AST 24 U/L (14-36); African American GFR (CKD) >90 (>60 ml/min/1.73 sqM); Albumin 4.2 g/dL (3.5-5.0); Alkaline Phosphatase 63 U/L (38-126); Anion Gap 5 mmol/L; Blood Urea Nitrogen 17 mg/dL (7-17); Calcium 9.7 mg/dL (8.4-10.2); Carbon Dioxide 28 mmol/L (22-30); Chloride 106 mmol/L (98-107); Glucose 113 mg/dL (74-99); Non-African American GFR(CKD) 82 (>60 ml/min/1.73 sqM); Potassium 4.6 mmol/L (3.5-5.1); Sodium 139 mmol/L (137-145); Total Bilirubin 0.5 mg/dL (0.2-1.3); Total Protein 7.4 g/dL (6.3-8.2)
[2019-10-04 04:12] VITALS: RESP 18
[2019-10-04 04:13] VITALS: BP 129/79; PULSE 70; TEMP 97.7
== END 2019-10-04 04:40 | disposition home or self-care (01) ==
LOC: EC 01:22
DX: R20.2 Paresthesia of skin (principal); R47.9 Unspecified speech disturbances; R20.0 Anesthesia of skin; J45.909 Unspecified asthma, uncomplicated; M79.7 Fibromyalgia; K21.9 Gastro-esophageal reflux disease without esophagitis; M19.90 Unspecified osteoarthritis, unspecified site; F90.9 Attention-deficit hyperactivity disorder, unspecified type; F32.9 Major depressive disorder, single episode, unspecified; Z87.891 Personal history of nicotine dependence; Z88.8 Allergy status to other drugs, medicaments and biological substances; Z79.82 Long term (current) use of aspirin; Z79.890 Hormone replacement therapy; Z79.899 Other long term (current) drug therapy; Z85.828 Personal history of other malignant neoplasm of skin; Z96.653 Presence of artificial knee joint, bilateral; Z98.890 Other specified postprocedural states
CPT/HCPCS: 36415; 70450; 71045; 80053; 84484; 85025; 85610; 85730; 93005; 96360; 96361; 99284

== ENCOUNTER → 2019-11-28 | Outpatient (CLI) | payer MEDICAID ==
--- NOTE | 2019-11-28 12:27 | MR ---
EXAMINATION TYPE: MR lumbar spine wo/w con DATE OF EXAM: 11/28/2019 COMPARISON: X-rays of the lumbar spine dated 06/24/2019 HISTORY: low back pain TECHNIQUE: Multiplanar, multisequence images of the lumbar spine were acquired utilizing 10 mL intravenous Gadav ist gadolinium contrast. FINDINGS: Lumbar spine vertebral body heights and alignment are maintained. Multilevel disc desiccati on is seen. Conus medullaris is unremarkable terminating at L2. There is an indeterminate right 1.0 c m T2 hyperintense and T1 hypointense renal lesion for which further characterization with renal ultra sound is recommended. This was too small to accurately characterize on the prior CT of 03/14/2019. L1-L2: There is a broad-based disc bulge without spinal canal stenosis nor neural foraminal narrowing . L2-L3: Disc desiccation is seen and minimal facet arthropathy without spinal canal stenosis or neural foraminal narrowing. L3-L4: There is a broad-based disc bulge and mild facet arthropathy without spinal canal stenosis or neural foraminal narrowing. L4-L5: There is a broad-based disc bulge and facet arthropathy as well as ligamentum flavum buckling resulting in mild bilateral neural foraminal narrowing. No spinal canal stenosis. L5-S1: There is a small central disc herniation superimposed on a broad-based disc bulge with mild fa cet arthropathy. No spinal canal stenosis or neural foraminal narrowing. IMPRESSION: 1. Small central disc herniation at L5-S1. No spinal canal stenosis or neural foraminal narrowing at this level. 2. Mild bilateral neural foraminal narrowing at L4-L5 and multilevel disc desiccation. 3. Indeterminate right renal lesion for which further characterization with renal ultrasound is recom mended as this was too small to accurately characterize on the prior CT of 03/14/2019.
== END | disposition home or self-care (01) ==
LOC: RADMRIMAIN 10:58
PROVIDERS: ATTEND Psychiatry & Neurology Neurology
DX: M48.061 Spinal stenosis, lumbar region without neurogenic claudication (principal); M51.17 Intervertebral disc disorders with radiculopathy, lumbosacral region
CPT/HCPCS: 72158; A9585

== ENCOUNTER → 2019-12-01 | Outpatient (CLI) | payer MEDICAID ==
--- NOTE | 2019-12-01 22:50 | MR ---
EXAMINATION TYPE: MR angio head wo con DATE OF EXAM: 12/01/2019 COMPARISON: NONE HISTORY: Dizziness, Left side weakness, radha side numbness TECHNIQUE: Time of flight images focusing on the [place] of [place] were performed without contrast.. 2-D and 3-D postprocessing imaging is performed on independent workstation and reviewed. FINDINGS: There is codominant vertebrobasilar system. Vertebral arteries are patent to basilar juncti on. No significant focal stenosis or aneurysmal change is present. Hypoplastic bilateral posterior co mmunicating arteries are noted. Images of the anterior circulation show patent anterior communicating artery image 93. There is no si gnificant focal stenosis or aneurysmal change identified. IMPRESSION: No significant focal stenosis or aneurysmal change at the level of the [place] of [place].
--- NOTE | 2019-12-01 22:56 | MR ---
EXAMINATION TYPE: MR brain wo/w mra neck wo/w con DATE OF EXAM: 12/01/2019 COMPARISON: Prior MRI brain May 05, 2016. Prior CT brain October 04, 2019. Prior carotid ultrasound July 17, 2014. HISTORY: Dizziness, Left side weakness, radha side numbness TECHNIQUE: Multiplanar, multisequence images of the brain and brainstem is performed without and with IV contras t, utilizing 10 mL intravenous Gadavist . MRA imaging of the neck is performed without and with IV co ntrast. 2-D and 3-D reconstructed images are created on an MRI scan on reviewed. FINDINGS: BRAIN: Diffusion weighted images demonstrate no evidence of a recent infarct or other diffusion abnormality. There is no worrisome extra-axial fluid collection. The ventricular system and cisternal spaces ar e normal in size and appearance. The brain volume is age appropriate. Scattered foci of T2 hyperinte nsity are redemonstrated throughout the white matter bilaterally with approximately 50-60 scattered l esions including a dominant 13 x 6 mm right frontal lesion axial image 21. Overall no significant zayda nge or progression from 2016 MRI. Findings less well seen on recent CT. Midline structures demonstrate normal morphology. The craniocervical junction appears within normal limits. Post contrast images demonstrate no abnormal enhancement. The dural venous sinuses appear pa tent. The visualized sinuses are clear and the globes are intact. IMPRESSION: Redemonstration of fairly moderate nonspecific white matter changes. No new or enhancing lesions are seen. No significant change from 2016 MRI. MRA NECK: There is three-vessel origin from aortic arch. Right common carotid artery shows normal origin from r ight brachiocephalic artery. No significant stenosis in the right common or internal carotid artery i ncluding a level of right carotid bulb. Patent external carotid artery without significant stenosis. No significant stenosis and left common or internal carotid artery including at level of carotid bulb . Patent external carotid artery without significant stenosis. There is some tortuous course to the bilateral vertebral arteries. Vertebral arteries are patent to b asilar junction. IMPRESSION: No significant stenosis in common or internal carotid arteries bilaterally.
== END | disposition home or self-care (01) ==
LOC: RADMRIMAIN 14:59
PROVIDERS: ATTEND Psychiatry & Neurology Neurology
DX: G45.9 Transient cerebral ischemic attack, unspecified (principal); R51 Headache; M54.12 Radiculopathy, cervical region; M54.16 Radiculopathy, lumbar region
CPT/HCPCS: 70544; 70549; 70553; A9585

== ENCOUNTER → 2019-12-04 | Outpatient (CLI) | payer MEDICAID ==
--- NOTE | 2019-12-04 12:54 | CT ---
EXAMINATION TYPE: CT abdomen pelvis w con DATE OF EXAM: 12/04/2019 COMPARISON: 03/14/2019, 12/25/2018 HISTORY: follow up endometrial cancer CT DLP: 1366 mGycm Automated exposure control for dose reduction was used. CONTRAST: CT scan of the abdomen pelvis is performed with IV Contrast, patient injected with 100 mL of Isovue 3 00. FINDINGS- LUNG BASES- No significant abnormality is appreciated. LIVER/GB- No gross abnormality is appreciated. PANCREAS- No gross abnormality is seen. SPLEEN- No gross abnormality is seen. ADRENALS- No gross abnormality is seen. KIDNEYS/BLADDER- no hydronephrosis or nephrolithiasis. Stable 8 mm hypodensity involving the lateral posterior margin of the right kidney too small to characterize unchanged from both of the prior exam. BOWEL- no bowel dilatation. Normal appendix. LYMPH NODES- No greater than 1cm abdominal or pelvic lymph nodes areappreciated. OSSEOUS STRUCTURES-mild spurring involving the hips noted. Facet arthropathy and degenerative disc di sease lumbar spine. OTHER- there is no omental thickening. No abnormal attenuation is seen in the peritoneum. Uterus not identified compatible with hysterectomy. Ovaries not seen with certainty correlate with the surgical history. Previous described noted linear changes extending to the rectus most likely related to post surgical findings are again noted. No free fluid. IMPRESSION- 1. Postsurgical changes compatible with previous hysterectomy with no diagnostic evidence of metastas es or pathologic adenopathy.
== END | disposition home or self-care (01) ==
LOC: RADCTMAIN 10:04
PROVIDERS: ATTEND Obstetrics & Gynecology
DX: C54.1 Malignant neoplasm of endometrium (principal); Z98.890 Other specified postprocedural states
CPT/HCPCS: 86304; 86336; 83520; 74177; 36415; Q9967

== ENCOUNTER → 2020-04-01 | Outpatient (CLI) | payer MEDICAID ==
--- NOTE | 2020-04-01 14:57 | US ---
EXAMINATION TYPE: US kidneys/renal and bladder DATE OF EXAM: 04/01/2020 COMPARISON: NONE CLINICAL HISTORY: [id number] ABN FINDINGS ON DIAGNOSTIC IMAGING. Lesion right kidney seen on CT exam EXAM MEASUREMENTS: Right Kidney: 10.4 x 3.6 x 3.9 cm Left Kidney: 10.2 x 5.5 x 5.2 cm Right Kidney: probable cystic area mid/lower pole = 0.9 x 0.8 x 0.9cm Left Kidney: no evidence of hydronephrosis Bladder: appears wnl Bilateral Jets seen: yes There is no evidence for hydronephrosis at this point in time. No nephrolithiasis is seen. No elise s are identified. The urinary bladder is anechoic. Bilateral ureteral jets are seen. IMPRESSION: Simple cyst
== END | disposition home or self-care (01) ==
LOC: RADUSWWP 11:55
PROVIDERS: ATTEND Family Medicine
DX: N28.1 Cyst of kidney, acquired (principal)
CPT/HCPCS: 76770

== ENCOUNTER → 2020-07-27 | Outpatient (CLI) | payer BC ==
--- NOTE | 2020-07-27 11:55 | XR ---
EXAMINATION TYPE: XR Hip Complete LT DATE OF EXAM: 07/27/2020 CLINICAL HISTORY: Left hip pain. TECHNIQUE: AP and frogleg views of the left hip are obtained. COMPARISON: CT abdomen and pelvis December 04, 2019 FINDINGS: There is no acute fracture/dislocation evident in the left hip. Mild/moderate axial joint space loss redemonstrated without significant spurring or subchondral cystic change. Femoral head sh ape maintained. Note is made of sclerosis and narrowing at the level of the pubic symphysis redemonst rated. Scattered Left-sided pelvic phleboliths redemonstrated. IMPRESSION: As above.
== END | disposition home or self-care (01) ==
LOC: RADXRYALE 11:36
PROVIDERS: ATTEND Family Medicine
DX: I87.8 Other specified disorders of veins (principal); M89.8X8 Other specified disorders of bone, other site; M25.852 Other specified joint disorders, left hip
CPT/HCPCS: 73502

== ENCOUNTER → 2020-07-30 | Outpatient (CLI) | payer BC ==
--- NOTE | 2020-07-30 10:54 | BD ---
EXAMINATION TYPE: Axial Bone Density DATE OF EXAM: 07/30/2020 COMPARISON: DEXA bone scan August 17, 2010 CLINICAL HISTORY: Postmenopausal female. Disorder of bone. Height: 65 Weight: 218.0 FRAX RISK QUESTIONS: Alcohol (3 or more units per day): no Family History (Parent hip fracture): no Glucocorticoids (More than 3mos): no (Ex: prednisone, prednisolone, methylprednisolone, dexamethasone, and hydrocortisone). History of Fracture in Adulthood: no Secondary Osteoporosis: 1. Type 1 Diabetes: no 2. Hyperthyroidism: no 3. Menopause before 45: no 4. Malnutrition: no 5. Chronic liver disease: no Rheumatoid Arthritis: no Current Tobacco Use: no RISK FACTORS HISTORY OF: Family History of Osteoporosis: yes Active: sometimes Diet low in dairy products/other sources of calcium: yes Postmenopausal woman: age 49 MEDICATIONS: aderol. singular, gabapentin, Motrin, Celexa, stomach meds Thyroid Medications: levothyroxine How Lon year Additional History: EXAM MEASUREMENTS: Bone mineral densitometry was performed using the [employer]. Bone mineral density as measured about the Lumbar spine is: ----- L1-L4(G/cm2): 1.109 T Score Values are as follows: ----- L2: -0.6 ----- L3: -0.6 ----- L4: -1.1 ----- L1-L4: -0.6 Bone mineral density has: increased 1.4 % since study of: 08.17.2010 Bone mineral density about the R hip (g/cm2): 0.967 Bone mineral density about the L hip (g/cm2): 1.029 T Score values are as follows: -----R Neck: -0.5 -----L Neck: -0.1 -----R Total: 0.3 -----L Total: 0.8 Bone mineral density has: decreased -4.5 % since study of: 08.17.2010 IMPRESSION: Normal (Values between +1 and -1 indicate normal bone mass). Consider repeating this study in 5 year s or sooner if there is some new clinical indication. NOTE: T-SCORE=SD OF THE YOUNG ADULT MEAN.
== END | disposition home or self-care (01) ==
LOC: RADBDWWP 09:58
PROVIDERS: ATTEND Obstetrics & Gynecology
DX: M89.9 Disorder of bone, unspecified (principal)
CPT/HCPCS: 77080

== ENCOUNTER → 2020-08-16 | Outpatient (CLI) | payer BC ==
[2020-08-19 18:45] LABS: Inhibin B <10 pg/mL
== END | disposition home or self-care (01) ==
LOC: LABWHC1 15:24
PROVIDERS: ATTEND Obstetrics & Gynecology
DX: C54.1 Malignant neoplasm of endometrium (principal)
CPT/HCPCS: 36415; 83520; 86304; 86336

== ENCOUNTER → 2020-10-08 | Outpatient (CLI) | payer BC, OTHER ==
--- NOTE | 2020-10-12 08:41 | MM ---
Reason for exam: screening (asymptomatic). Last mammogram was performed 1 year and 8 months ago. History: Patient is postmenopausal, has history of endometrial cancer at age 58, and has history of other cancer at age 23. Family history of breast cancer in grandmother at age 90. Excisional biopsy of the left breast, 1979. Took hormonal contraceptives for 3 months. Took estrogen for 1 month. Physical Findings: A clinical breast exam by your physician is recommended on an annual basis and results should be correlated with mammographic findings. MG Screening Mammo w CAD Bilateral CC and MLO view(s) were taken. Prior study comparison: January 31, 2019, bilateral MG 3d screening mammo w/cad. April 11, 2017, bilateral MG 3d screening mammo w/cad. Global asymmetry superior left MLO view has become more defined. ASSESSMENT: Incomplete: need additional imaging evaluation, BI-RAD 0 RECOMMENDATION: Special view mammogram of the left breast. (3D) If lesion persists on supplemental views, image directed ultrasound is recommended. [facility] will attempt to contact patient to return for supplemental views and ultrasound if indicated.
== END | disposition home or self-care (01) ==
LOC: RADMAMWWP 12:37
PROVIDERS: ATTEND Obstetrics & Gynecology
DX: Z12.31 Encounter for screening mammogram for malignant neoplasm of breast (principal)
CPT/HCPCS: 77067

== ENCOUNTER → 2020-10-18 | Outpatient (CLI) | payer OTHER ==
--- NOTE | 2020-10-18 11:58 | MM ---
Reason for exam: additional evaluation requested from abnormal screening. Last mammogram was performed less than 1 month ago. History: Patient is postmenopausal, has history of endometrial cancer at age 58, and has history of other cancer at age 23. Family history of breast cancer in grandmother at age 90. Excisional biopsy of the left breast, 1979. Took hormonal contraceptives for 3 months. Took estrogen for 1 month. Physical Findings: Nurse did not find any significant physical abnormalities on exam. MG 3D Work Up W/Cad LT Spot compression CC, spot compression MLO, and LM view(s) were taken of the left breast. Prior study comparison: October 08, 2020, bilateral MG screening mammo w CAD. January 31, 2019, bilateral MG 3d screening mammo w/cad. The breast tissue is heterogeneously dense. This may lower the sensitivity of mammography. Asymmetric density disperses on CC. The area becomes less defined on 3D spot MLO as well. Questionable subtle 7mm underlying nodularity. These results were verbally communicated with the patient and result sheet given to the patient on 10/18/20. ASSESSMENT: Incomplete: need additional imaging evaluation, BI-RAD 0 RECOMMENDATION: Ultrasound of the left breast. (1-3 o'clock)
--- NOTE | 2020-10-18 11:59 | USB ---
Reason for exam: additional evaluation requested from abnormal screening. History: Patient is postmenopausal, has history of endometrial cancer at age 58, and has history of other cancer at age 23. Family history of breast cancer in grandmother at age 90. Excisional biopsy of the left breast, 1979. Took hormonal contraceptives for 3 months. Took estrogen for 1 month. US Breast Workup Limited LT Technologist: Jo De La Rosa Left limited breast ultrasound including focal area of concern, retroareolar and axilla demonstrates a 1.0 x 1.1 x 0.5cm oval, possible lymph node despite the lack of hilar vascularity at 1 o'clock. 6 month follow up recommended. Scanned 1-3 o'clock. These results were verbally communicated with the patient and result sheet given to the patient on 10/18/20. ASSESSMENT: Probably benign, BI-RAD 3 RECOMMENDATION: Follow-up diagnostic mammogram and ultrasound of the left breast in 6 months.
== END | disposition home or self-care (01) ==
LOC: RADMAMWWP 09:39
PROVIDERS: ATTEND Obstetrics & Gynecology
DX: R92.8 Other abnormal and inconclusive findings on diagnostic imaging of breast (principal)
CPT/HCPCS: 77065; 76642; G0279; 77061

== ENCOUNTER → 2020-12-07 | Outpatient (CLI) | payer OTHER ==
[2020-12-08 02:21] LABS: T4, Free (Free Thyroxine) 0.8 ng/dL (0.80-1.80)
== END | disposition home or self-care (01) ==
LOC: LABWHC1 08:01
PROVIDERS: ATTEND Family Medicine
DX: E03.9 Hypothyroidism, unspecified (principal)
CPT/HCPCS: 36415; 84439; 84443

== ENCOUNTER → 2021-03-10 | Outpatient (CLI) | payer OTHER ==
[2021-03-10 18:36] LABS: Chol/HDL Ratio 2.41; LDL Cholesterol,Calculated 74.8 mg/dL (0.0-131.0); VLDL Calculation 18.2 mg/dL (5.00-40.00)
[2021-03-10 18:52] LABS: Thyroid Peroxidase Antibodies <28.0 U/mL (0.0-60.0)
== END | disposition home or self-care (01) ==
LOC: LABWHC1 09:22
PROVIDERS: ATTEND Family Medicine
DX: E07.89 Other specified disorders of thyroid (principal); E78.2 Mixed hyperlipidemia; R53.83 Other fatigue
CPT/HCPCS: 36415; 80061; 84439; 84443; 86376; 86800

== ENCOUNTER → 2021-04-12 | Outpatient (CLI) | payer OTHER ==
--- NOTE | 2021-04-12 14:46 | USB ---
EXAMINATION TYPE: US breast limited LT DATE OF EXAM: 04/12/2021 COMPARISON: Mammogram same date, 10/18/2020 CLINICAL HISTORY: R92.8 Abnormal Mammo. Findings: Left breast ultrasound was performed from 12-2 o'clock and in the axillary region. Incidental note is made of an axillary lymph node in the left breast at 1:00. IMPRESSION: No sonographic evidence for malignancy. Return to annual screening mammogram. Patient is due for her bilateral mammogram in October 2021. BI-RADS 2, benign.
--- NOTE | 2021-04-13 07:42 | MM ---
Reason for exam: follow-up at short interval from prior study. Last mammogram was performed 6 months ago. History: Patient is postmenopausal, has history of endometrial cancer at age 58, and has history of other cancer at age 23. Family history of breast cancer in grandmother at age 90. Excisional biopsy of the left breast, 1979. Took hormonal contraceptives for 3 months. Took estrogen for 1 month. Physical Findings: Nurse did not find any significant physical abnormalities on exam. MG 3D Diag Mammo W/Cad LT CC and MLO view(s) were taken of the left breast. Prior study comparison: October 18, 2020, left breast MG 3d work up w/cad LT. January 31, 2019, bilateral MG 3d screening mammo w/cad. The breast tissue is heterogeneously dense. This may lower the sensitivity of mammography. These results were verbally communicated with the patient and result sheet given to the patient on 04/12/21. ASSESSMENT: Incomplete: need additional imaging evaluation, BI-RAD 0 RECOMMENDATION: Ultrasound of the left breast. (as per prior report)
== END | disposition home or self-care (01) ==
LOC: RADMAMWWP 13:46
PROVIDERS: ATTEND Obstetrics & Gynecology
DX: R92.8 Other abnormal and inconclusive findings on diagnostic imaging of breast (principal); Z80.3 Family history of malignant neoplasm of breast
CPT/HCPCS: 77065; 76642; G0279; 77061

== ENCOUNTER → 2021-08-10 | Outpatient (CLI) | payer OTHER ==
[2021-08-10 11:53] LABS: African American GFR (CKD) >90 (>60 ml/min/1.73 sqM); Blood Urea Nitrogen 23 mg/dL (7-17); Non-African American GFR(CKD) >90 (>60 ml/min/1.73 sqM)
--- NOTE | 2021-08-10 13:53 | XR ---
EXAMINATION TYPE: XR chest 2V DATE OF EXAM: 08/10/2021 COMPARISON: 10/04/2019 HISTORY: 60-year-old female C54.1, malignant neoplasm of endometrium TECHNIQUE: Frontal and lateral views FINDINGS: The cardiomediastinal silhouette, aorta, and pulmonary vasculature are within normal limits. Hazy den sities related to patient body habitus. Lungs and pleural spaces are clear. IMPRESSION: No acute cardiopulmonary process.
--- NOTE | 2021-08-10 15:27 | CT ---
EXAMINATION TYPE: CT abdomen pelvis w con DATE OF EXAM: 08/10/2021 COMPARISON: CT 12/04/2019 HISTORY: H/O cervix CA, f/u endometrial carcinoma, C 54.1 CT DLP: 1310 mGycm Automated exposure control for dose reduction was used. TECHNIQUE: Helical acquisition of images from the lung bases through the pelvis have been completed. CONTRAST: Performed with Oral Contrast and with IV Contrast, patient injected with 100 mL of Isovue 300. FINDINGS: LUNG BASES: No significant abnormality is appreciated. AORTA: No significant abnormality is appreciated. LIVER/GB: No significant abnormality is appreciated. PANCREAS: No significant abnormality is seen. SPLEEN: No significant abnormality is seen. ADRENALS: No significant abnormality is seen. KIDNEYS: No significant change is seen. REPRODUCTIVE ORGANS: Not seen BOWEL: No significant abnormality is seen. FREE AIR: No Free Air visible. ASCITES: None visible. PELVIC ADENOPATHY: None visualized. RETROPERITONEAL ADENOPATHY: No Retroperitoneal Adenopathy visible. URINARY BLADDER: No significant abnormality is seen. OSSEOUS STRUCTURES: No significant abnormality is seen. IMPRESSION: STABLE UNREMARKABLE EXAM
[2021-08-10 20:28] LABS: Cancer Antigen 125 4.6 U/mL (0.0-30.1)
== END | disposition home or self-care (01) ==
LOC: RADCTMAIN 10:43
PROVIDERS: ATTEND Obstetrics & Gynecology
DX: C54.1 Malignant neoplasm of endometrium (principal)
CPT/HCPCS: 82570; 86304; 82565; 84520; 86336; 83520; 71046; 74177; 36415; Q9967

== ENCOUNTER → 2021-08-12 | Outpatient (CLI) | payer OTHER ==
[2021-08-12 15:07] LABS: Basophils # (A) 0.03 X 10*3/uL (0.00-0.10); Basophils % (A) 0.4 %; Eosinophils # (A) 0.27 X 10*3/uL (0.04-0.35); Eosinophils % (A) 3.4 %; HCT 45.5 % (37.2-46.3); HGB 14.6 g/dL (12.0-15.0); Lymphocytes # (A) 2.15 X 10*3/uL (0.90-5.00); Lymphocytes % (A) 27.1 %; MCH 28.2 pg (27.0-32.0); MCHC 32.1 g/dL (32.0-37.0); Monocytes # (A) 0.61 X 10*3/uL (0.20-1.00); Monocytes % (A) 7.7 %; Neutrophils # (A) 4.86 X 10*3/uL (1.80-7.70); Neutrophils % (A) 61.3 %; Platelet Count 300 X 10*3/uL (140-440); RBC 5.17 X 10*6/uL (4.10-5.20); RDW 13.6 % (11.5-14.5); WBC 7.93 X 10*3/uL (4.50-10.00)
[2021-08-12 17:22] LABS: ALT 22 U/L (8-44); AST 21 U/L (13-35); African American GFR (CKD) 83.9 (60.0-200.0); Albumin 4.4 g/dL (3.8-4.9); Alkaline Phosphatase 63 U/L (41-126); BUN/Creat Ratio 19.89 Ratio (12.00-20.00); Blood Urea Nitrogen 17.4 mg/dL (9.0-27.0); Chloride 103 mmol/L (96-109); Chol/HDL Ratio 3.71 Ratio; Globulin 2.6 g/dL (1.6-3.3); Glucose 119 mg/dL (70-110); LDL Cholesterol,Calculated 137.7 mg/dL (0.0-131.0); Non-African American GFR(CKD) 72.4 (60.0-200.0); Potassium 5.1 mmol/L (3.5-5.5); Sodium 141 mmol/L (135-145)
== END | disposition home or self-care (01) ==
LOC: LABWHC1 07:53
PROVIDERS: ATTEND Family Medicine
DX: E78.2 Mixed hyperlipidemia (principal); E07.89 Other specified disorders of thyroid; E03.8 Other specified hypothyroidism; E55.9 Vitamin D deficiency, unspecified; R53.83 Other fatigue
CPT/HCPCS: 36415; 80053; 80061; 82306; 84443; 85025

== ENCOUNTER → 2021-11-23 | Outpatient (CLI) | payer OTHER ==
[2021-11-23 14:11] LABS: Basophils # (A) 0.03 X 10*3/uL (0.00-0.10); Basophils % (A) 0.4 %; Eosinophils # (A) 0.25 X 10*3/uL (0.04-0.35); Eosinophils % (A) 3.4 %; HCT 43.4 % (37.2-46.3); HGB 13.7 g/dL (12.0-15.0); Immature Grans, Automated 0.1 %; Lymphocytes # (A) 2.04 X 10*3/uL (0.90-5.00); Lymphocytes % (A) 27.4 %; MCH 27.4 pg (27.0-32.0); MCHC 31.6 g/dL (32.0-37.0); MCV 86.8 fL (80.0-97.0); Monocytes # (A) 0.64 X 10*3/uL (0.20-1.00); Monocytes % (A) 8.6 %; NRBC Per 100 WBC 0 /100 WBCS (0.0-0.0); Neutrophils # (A) 4.48 X 10*3/uL (1.80-7.70); Neutrophils % (A) 60.1 %; Platelet Count 292 X 10*3/uL (140-440); WBC 7.45 X 10*3/uL (4.50-10.00)
== END | disposition home or self-care (01) ==
LOC: LABPAT 08:10
PROVIDERS: ATTEND Obstetrics & Gynecology
DX: Z01.812 Encounter for preprocedural laboratory examination (principal)
CPT/HCPCS: 85025; 93005

== ENCOUNTER → 2021-11-23 | Outpatient (CLI) | payer OTHER ==
[2021-11-23 14:58] LABS: ALT 24 U/L (8-44); AST 22 U/L (13-35); African American GFR (CKD) 80.5 (60.0-200.0); Albumin 4.4 g/dL (3.8-4.9); Albumin/Globulin Ratio 1.76 (1.60-3.17); Alkaline Phosphatase 61 U/L (41-126); BUN/Creat Ratio 22.78 Ratio (12.00-20.00); Blood Urea Nitrogen 20.5 mg/dL (9.0-27.0); Calcium 9.4 mg/dL (8.7-10.3); Carbon Dioxide 24.7 mmol/L (20.0-27.5); Chloride 104 mmol/L (96-109); Globulin 2.5 g/dL (1.6-3.3); Glucose 123 mg/dL (70-110); LDL Cholesterol,Calculated 69.3 mg/dL (0.0-131.0); Non-African American GFR(CKD) 69.5 (60.0-200.0); Potassium 4.7 mmol/L (3.5-5.5); Sodium 142 mmol/L (135-145); Total Protein 6.9 g/dL (6.2-8.2)
== END | disposition home or self-care (01) ==
LOC: LABWHC1 08:12
PROVIDERS: ATTEND Family Medicine
DX: R53.83 Other fatigue (principal); E78.2 Mixed hyperlipidemia; E07.89 Other specified disorders of thyroid; F41.3 Other mixed anxiety disorders; B55.9 Leishmaniasis, unspecified; E03.8 Other specified hypothyroidism
CPT/HCPCS: 36415; 80053; 80061; 82306; 84443

== ENCOUNTER 2022-02-23 06:07 | Day surgery (SDC) | payer OTHER ==
[2022-02-22 08:35] VITALS: BMI 34.9
--- NOTE | 2022-02-22 14:23 | P.HPOB ---
History of Present Illness H&P Date: 02/22/22 Chief Complaint: Left vulvar cyst This is a 61 y.o. female, 6, para 3, who presents for left vulvar cystectomy. She has noticed the area for about the last year and initially thought it was growing, but now thinks it may be shrinking a little. She denies any pain. She has been seen by managing partner [employer] [place]-oncology who recommends removal. OB Hx: . History of 1 vaginal delivery and 2 sections. History of 3 miscarriages. 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 Social Hx: . Works part-time at [employer]. Review of Systems Constitutional: Denies chills, Denies fever Eyes: denies blurred vision, denies pain Ears, nose, mouth and throat: Denies headache, Denies sore throat Cardiovascular: Denies chest pain, Denies shortness of breath Respiratory: Denies cough Gastrointestinal: Reports abdominal pain (occ. 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 varicose veins, hypoglycemia, borderline HTN. History of Any Multi-Drug Resistant Organisms: None Reported Past Surgical History: Breast Surgery, Section, Hysterectomy, Joint Replacement, Orthopedic Surgery Additional Past Surgical History / Comment(s): Bilateral knee replacements, BILATERAL KNEE ARTHOSCOPY, BREAST BX-NEG, CYST REMOVED LEFT BREAST, OVARIAN CYST REMOVED NOT LAPAROSCOPIC. TUMOR RIGHT KNEE EXTRACTED- CANCEROUS. D&C. CERVICAL CANCER PROCEDURE. Past Anesthesia/Blood Transfusion Reactions: No Reported Reaction Past Psychological History: ADD/ADHD, Depression Smoking Status: Former smoker Past Alcohol Use History: Rare Additional Past Alcohol Use History / Comment(s): SMOKED: QUIT @ 25 YR. SMOKED FOR 3 YRS. PPD: 1.5. Past Drug Use History: None Reported - Past Family History Mother Family Medical History: AFIB Father Family Medical History: Cancer Medications and Allergies Home Medications Medication Instructions Recorded Confirmed Type Citalopram Hydrobromide [CeleXA] 20 mg PO HS 12/07/14 02/22/22 History Dextroamphetamine/Amphetamine 25 mg PO DAILY 12/07/14 02/22/22 History [Adderall] Montelukast [Singulair] 10 mg PO DAILY PRN 12/07/14 02/22/22 History Zolpidem [Ambien] 5 mg PO HS PRN 12/07/14 02/22/22 History Albuterol Sulfate [Ventolin HFA] 2 puff INHALATION RT-Q6H PRN 12/09/14 02/22/22 History Cholecalciferol [Vitamin D3 (25 1,000 unit PO DAILY 12/09/14 02/22/22 History Mcg = 1000 Iu)] Omeprazole [PriLOSEC] 20 mg PO DAILY PRN 03/28/16 02/22/22 History Gabapentin [Neurontin] 100 mg PO DAILY 09/20/17 02/22/22 History Docusate [Colace] 100 mg PO DAILY PRN 02/06/18 02/22/22 History Aspirin 81 mg PO DAILY 11/21/18 02/22/22 History Ibuprofen [Motrin] 600 mg PO Q8HR PRN 11/21/18 02/22/22 History Melatonin 5 mg PO HS 11/21/18 02/22/22 History Rosuvastatin [Crestor] 5 mg PO DAILY 02/22/22 02/22/22 History Allergies Allergy/AdvReac Type Severity Reaction Status Date / Time scopolamine AdvReac tachycardia Verified 02/22/22 08:25 Exam Osteopathic Statement: *. No significant issues noted on an osteopathic structural exam other than those noted in the History and Physical/Consult. Intake and Output 02/21/22 02/22/22 02/22/22 22:59 06:59 14:59 Other: Weight 95.254 kg HEENT: within normal limits Heart: regular rate and rhythm Lungs: clear to auscultation bilaterally Abdomen: soft, non-tender Pelvic: vagina-no lesions, no adnexal masses or tenderness Extremities: neg. Zaina's Assessment and Plan (1) Vulvar cyst Current Visit: No Status: Acute Code(s): N90.7 - VULVAR CYST SNOMED Code(s): 97302213 Plan: Proceed with left vulvar cystectomy. I have discussed the risks, benefits, and alternative therapies for the above- mentioned procedure and for both sedation/anesthesia as well as necessary blood products administration, if indicated, as they pertain to this patient. The patient has indicated her understanding and acceptance of the risks and procedures discussed.
[~2022-02-23 06:07] MED LIST changes: -DEXAMETHASONE SOD PHOSPHATE 10 MG/ML 1 ML VIAL IV ONE; -HYDROmorphone 1 MG/ML 1 ML SYRINGE IVP PRN; -LACTATED RINGERS 1,000 ML IV SCH; -LIDOCAINE 1% 20 ML VIAL (10MG/ML) FOR IV START INTRADERMA PRN; -ONDANSETRON 4 MG/2 ML VIAL IVP ONE; +Pre Op ABX Message 1 EACH MISC MISCELLANE ONE; -SCOPOLAMINE 1.5MG/72HR PATCH TRANSDERM ONE
[2022-02-23] MEDS ORDERED: HYDROmorphone 0.5 MG/0.5 ML SYRINGE IVP PRN (06:19)
[2022-02-23] MEDS ORDERED: DEXAMETHASONE SOD PHOSPHATE 4 MG/ML 1 ML VIAL IV ONE (06:19)
[2022-02-23] MEDS ORDERED: ONDANSETRON 4 MG/2 ML VIAL IVP ONE (06:19)
[2022-02-23] MEDS ORDERED: LACTATED RINGERS 1,000 ML IV SCH (06:19)
[2022-02-23 06:49] LABS: Glucose,Whole Blood 126 mg/dL (75-99)
[2022-02-23] MEDS ORDERED: KETOROLAC 15 MG/ML 1 ML VIAL ONE (07:15)
[2022-02-23] MEDS ORDERED: PROPOFOL 10 MG/ML 20 ML VIAL IV ONE (07:15)
[2022-02-23] MEDS ORDERED: fentaNYL (PF) 50 MCG/ML 2 ML AMP ONE (07:15)
[2022-02-23] MEDS ORDERED: MIDAZOLAM 2 MG/2 ML VIAL ONE (07:15)
[2022-02-23] MEDS ORDERED: LIDOCAINE 2% INJ 20 MG/ML (2 ML VIAL) ONE (07:15)
[2022-02-23] MEDS ORDERED: LACTATED RINGERS 1,000 ML IV ONE (07:18)
[2022-02-23] MEDS ORDERED: LIDOCAINE 1%-EPI 1:100,000 20 ML VIAL SQ ONE (07:45)
--- NOTE | 2022-02-23 07:47 | P.OP ---
Date of Procedure: 02/23/22 Preoperative Diagnosis: Left vulvar cyst Postoperative Diagnosis: Same Procedure(s) Performed: Excision left vulvar cyst Anesthesia: other (LMA general) Surgeon: Fidelia Briceno Estimated Blood Loss (ml): 3 Pathology: other (Left vulvar cyst wall) Condition: stable Disposition: same day Indications for Procedure: This is a 61 y.o. female, 6, para 3, who presents for left vulvar cystectomy. She has noticed the area for about the last year and initially thought it was growing, but now thinks it may be shrinking a little. She denies any pain. She has been seen by [facility] [employer]oncology who recommends removal. Operative Findings: Hemorrhagic sebaceous cyst noted on left upper vulvar area/mons. Approximately 2 cm in diameter. Brown fluid was extruded from the cyst. Description of Procedure: The patient is significant operating room where she is placed in the dorsal lithotomy position. She is prepped and draped in the normal sterile fashion. Her bladder is drained with a catheter and then removed. Examination is pe rformed under anesthesia. No adnexal masses are palpated. Vaginal cuff appear smooth. Left vulvar/mons area is palpated and there is a bluish colored area just underneath the dermis. A scalpel with 15 blade is used to excise the skin around this. The 15 blade is used to dissect around the cyst wall and during this process the cyst did break open and brownish yellow fluid was extruded. The edges of the cyst wall were then grasped with a hemostat and the cyst wall was completely removed and sent to pathology. One stitch of 3-0 Vicryl suture was placed deeper in the incision and then the skin incision is closed with 3-0 Vicryl suture in a subcuticular fashion with one interrupted stitch placed on the outer incision. The incision is then injected with 1% lidocaine with epinephrine. Approximately 4 mL were used. Steri-Strips are placed. All sponge and needle counts are correct. Patient is then taken to recovery room in stable condition.
[2022-02-23 08:01] VITALS: TEMP 97.7
[2022-02-23 08:04] VITALS: RESP 17
[2022-02-23 08:21] LABS: Glucose,Whole Blood 119 mg/dL (75-99)
[2022-02-23 08:44] VITALS: BP 120/70; PULSE 73
== END 2022-02-23 09:08 | disposition home or self-care (01) ==
LOC: OR 06:07
PROVIDERS: ATTEND Obstetrics & Gynecology
DX: N90.7 Vulvar cyst (principal); E78.5 Hyperlipidemia, unspecified; I10 Essential (primary) hypertension; J45.909 Unspecified asthma, uncomplicated; K21.9 Gastro-esophageal reflux disease without esophagitis; M17.11 Unilateral primary osteoarthritis, right knee; M79.7 Fibromyalgia; Z79.1 Long term (current) use of non-steroidal anti-inflammatories (NSAID); Z79.82 Long term (current) use of aspirin; Z85.41 Personal history of malignant neoplasm of cervix uteri; Z87.891 Personal history of nicotine dependence; Z90.721 Acquired absence of ovaries, unilateral; Z96.653 Presence of artificial knee joint, bilateral
CPT/HCPCS: 11420; 88305; J2250; J3010; J1885; J2704; J2001

== ENCOUNTER → 2022-07-28 | Outpatient (CLI) | payer MEDICARE, OTHER ==
--- NOTE | 2022-07-28 11:58 | XR ---
EXAMINATION TYPE: XR chest 2V DATE OF EXAM: 07/28/2022 COMPARISON: 08/10/2021 HISTORY: Shortness of breath TECHNIQUE: Frontal and lateral views of the chest are obtained. FINDINGS: Scattered senescent parenchymal changes noted. Hyperinflation compatible with COPD. No evidence for infiltrate. No evidence for atelectasis. Heart size is stable. Mediastinal structures are stable and grossly unremarkable. No evidence for hilar prominence. Degenerative changes dorsal spine. IMPRESSION: 1. No evidence for acute pulmonary disease.
--- NOTE | 2022-07-28 13:06 | CT ---
EXAMINATION TYPE: CT abdomen pelvis w con CT DLP: 1397.40 mGycm, Automated exposure control for dose reduction was used. DATE OF EXAM: 07/28/2022 12:54 PM COMPARISON: 08/10/2021 CLINICAL INDICATION:Female, 61 years old with history of C54.1; f/u hx of cervical ca TECHNIQUE: Axial CT of the abdomen and pelvis. Sagittal and coronal reformats were created on a [facility] workstation. Contrast used:70 mL of Isovue 300 with IV Contrast, Oral contrast used: with Oral Contrast FINDINGS: LOWER CHEST: Unremarkable ABDOMEN LIVER: Unremarkable GALLBLADDER AND BILE DUCTS: Unremarkable. PANCREAS: Unremarkable. SPLEEN: Unremarkable. ADRENAL GLANDS: Unremarkable. KIDNEYS AND URETERS: No evidence of hydronephrosis or renal calculus. The ureters are unremarkable. PELVIS BLADDER: Unremarkable REPRODUCTIVE: The uterus is surgically absent. There is a similar morphology to the surgical bed. No evidence of omental caking or abnormal lymphadenopathy within the abdomen or pelvis. ABDOMEN & PELVIS STOMACH AND BOWEL: No evidence of bowel obstruction. PERITONEUM: No evidence of pneumoperitoneum or free fluid. VASCULATURE: No evidence of aortic aneurysm. MUSCULOSKELETAL: No acute osseous abnormalities, multilevel disc degeneration changes most pronounced in the lower thoracic spine. LYMPH NODES: No gross evidence for lymphadenopathy. SOFT TISSUE/ABDOMINAL WALL: Unremarkable IMPRESSION: Post hysterectomy changes without evidence for local recurrence or metastatic disease.
== END | disposition home or self-care (01) ==
LOC: RADCTMAIN 10:45
PROVIDERS: ATTEND Obstetrics & Gynecology
DX: R06.02 Shortness of breath (principal); Z85.41 Personal history of malignant neoplasm of cervix uteri
CPT/HCPCS: 71046; 74177; Q9967

== ENCOUNTER → 2023-06-08 | Outpatient (CLI) | payer MEDICARE, OTHER ==
--- NOTE | 2023-06-08 14:50 | BD ---
EXAMINATION TYPE: Axial Bone Density DATE OF EXAM: 06/08/2023 CLINICAL HISTORY: 62 years old Female. ICD-10 CODE: M85.88 OT DISRD OF BONE DENSITY Height: 64" Weight: 202.1 FRAX RISK QUESTIONS: Alcohol (3 or more units per day): No Family History (Parent hip fracture): No Glucocorticoids (More than 3mos): No (Ex: prednisone, prednisolone, methylprednisolone, dexamethasone, and hydrocortisone). History of Fracture in Adulthood: No Secondary Osteoporosis: 1. Type 1 Diabetes: No 2. Hyperthyroidism: No 3. Menopause before 45: No 4. Malnutrition: No 5. Chronic liver disease: No Rheumatoid Arthritis: No Current Tobacco Use: No RISK FACTORS HISTORY OF: Hip Fracture (Right/Left): No Spine Fracture: No History of Wrist Fracture: No Surgery to Spine/Hip(right/left)/Wrist (right/left): No Family History of Osteoporosis: Yes, Maternal grandmother, mother Active: No Diet low in dairy products/other sources of calcium: No Postmenopausal woman: Yes Lost more than 2 inches in height since high school: No Frequent falls: Occasionally Poor Health: No Hyperparathyroidism: No Adrenal Insufficiency: No MEDICATIONS: Prednisone or other steroids: No Thyroid Medications: No Osteoporosis Medications: No Additional Medications: Adderol, motrin, eye drop for glaucoma, cholesterol meds, reflux medication, ambien and melatonin as needed, Celexa, Singular, Occasionally Vit D Additional History: Hx of cervical cancer, no chemo or radiation EXAM MEASUREMENTS: Bone mineral densitometry was performed using the [employer]. Bone mineral density as measured about the Lumbar spine is: ----- L1-L4(G/cm2): 1.142 T Score Values are as follows: ----- L1: 0.1 ----- L2: -0.1 ----- L3: -0.5 ----- L4: -0.8 ----- L1-L4: -0.3 Z Score Values are as follows: ----- L1: 0.5 ----- L2: 0.3 ----- L3: -0.1 ----- L4: -0.3 ----- L1-L4: 0.1 Bone mineral density has: increased 3.0% since study of: 07/30/2020 Bone mineral density about the R hip (g/cm2): 1.102 Bone mineral density about the L hip (g/cm2): 1.089 T Score values are as follows: -----R Neck: -0.1 -----L Neck: -0.2 -----R Total: 0.7 -----L Total: 0.6 Z Score values are as follows: -----R Neck: 0.6 -----L Neck: 0.6 -----R Total: 1.1 -----L Total: 1.0 Bone mineral density has: increased 1.7% since study of: 07/30/2020 FRAX%s: The graph provided illustrates a 6.1% chance for a major osteoporotic fx and a 0.2% chance fo r the hips probability for fx in 10 years time. IMPRESSION: Normal (Values between +1 and -1 indicate normal bone mass). Consider repeating this study in 5 year s or sooner if there is some new clinical indication. NOTE: T-SCORE=SD OF THE YOUNG ADULT MEAN.
--- NOTE | 2023-06-11 08:48 | MM ---
Reason for Exam: Screening (asymptomatic). Last mammogram was performed 1 year(s) and 1 month(s) ago. Patient History: Menarche at age 14. First Full-Term at age 25. Left ovary removed at age 58. Right ovary removed at age 58. Hysterectomy at age 58. Postmenopausal. Patient has history of breast feeding. Other cancer, age 23. Endometrial cancer, age 58. Estrogen for 1 month. Hormonal Contraceptives for 3 months. 1979, Excisional Biopsy on the Left side. Maternal grandmother had breast cancer, age 90. Risk Values: Sarah 5 year model risk: 1.6%. NCI Lifetime model risk: 7.5%. Prior Study Comparison: 10/18/2020 Left Diagnostic Mammogram, [facility]. 04/12/2021 Left Diagnostic Mammogram, [facility]. 05/24/2022 Bilateral MG 3D screening mammo w/cad, [facility]. Tissue Density: The breast tissue is heterogeneously dense. This may lower the sensitivity of mammography. Findings: Analyzed By CAD. There is no suspicious group of microcalcifications or new suspicious mass in either breast. Overall Assessment: Negative, BI-RAD 1 Management: Screening Mammogram of both breasts in 1 year. A clinical breast exam by your physician is recommended on an annual basis and results should be correlated with mammographic findings. Note on Sarah scores and lifetime risk: 1. A Sarah score greater than 3% is considered moderate risk. If this is the case, consider specialist referral to assess eligibility for a risk reducing agent. If overall lifetime risk for the development of breast cancer is 20% or higher, the patient may qualify for future screening with alternating mammogram and breast MRI. Electronically signed and approved by: Korey Bello D.O.
== END | disposition home or self-care (01) ==
LOC: RADBDWWP 11:19
PROVIDERS: ATTEND Obstetrics & Gynecology
DX: Z12.31 Encounter for screening mammogram for malignant neoplasm of breast (principal); Z78.0 Asymptomatic menopausal state; Z80.3 Family history of malignant neoplasm of breast
CPT/HCPCS: 77063; 77067; 77080

== ENCOUNTER → 2024-12-11 | Outpatient (CLI) | payer MEDICARE ==
--- NOTE | 2024-12-11 10:13 | MM ---
Reason for Exam: Screening (asymptomatic). Last mammogram was performed 1 year(s) and 6 month(s) ago. Patient History: Menarche at age 14. First Full-Term at age 25. Left ovary removed at age 58. Right ovary removed at age 58. Hysterectomy at age 58. Postmenopausal. Patient has history of breast feeding. Estrogen for 1 month. Hormonal Contraceptives for 3 months. 1979, Excisional Biopsy on the Left side. Maternal grandmother had breast cancer, age 90. Risk Values: Sarah 5 year model risk: 1.7%. NCI Lifetime model risk: 7.1%. Prior Study Comparison: 04/12/2021 Left Diagnostic Mammogram, [facility]. 05/24/2022 Bilateral MG 3D screening mammo w/cad, [facility]. 06/08/2023 Bilateral MG 3D screening mammo w/cad, [facility]. Tissue Density: The breasts are heterogeneously dense, which may obscure small masses. Findings: Analyzed By CAD. There is no suspicious group of microcalcifications or new suspicious mass in either breast. Overall Assessment: Negative, BI-RAD 1 Management: Screening Mammogram of both breasts in 1 year. . Patient should continue monthly self-breast exams. A clinical breast exam by your physician is recommended on an annual basis. This exam should not preclude additional follow-up of suspicious palpable abnormalities. Note on Sarah scores and lifetime risk: 1. A Sarah score greater than 3% is considered moderate risk. If this is the case, consider specialist referral to assess eligibility for a risk reducing agent. 2. If overall lifetime risk for the development of breast cancer is 20% or higher, the patient may qualify for future screening with alternating mammogram and breast MRI. [facility], , 12/11/2024 10:09 AM. Electronically signed and approved by: Milton Gutierrez M.D. Radiologis
== END | disposition home or self-care (01) ==
LOC: RADMAMWWP 09:32
PROVIDERS: ATTEND Family Medicine
DX: Z12.31 Encounter for screening mammogram for malignant neoplasm of breast (principal); R92.333 Mammographic heterogeneous density, bilateral breasts; Z78.0 Asymptomatic menopausal state; Z80.3 Family history of malignant neoplasm of breast; Z92.0 Personal history of contraception
CPT/HCPCS: 77063; 77067